=== PATIENT | female | born 1950 | race Caucasian/White ===

== ENCOUNTER 2017-08-03 11:43 | Inpatient (IN) ==
[2017-08-03] MEDS ORDERED: Lacri-Lube 3.5 GM TUBE BOTH EYES PRN (16:49)
[2017-08-03] MEDS ORDERED: Insulin Human Regular 100 UNIT in 0.9 % Sodium Chloride 100 ML IVC SCH (17:00)
[2017-08-03] MEDS ORDERED: FentaNYL (PF) 1,000 MCG in 0.9 % Sodium Chloride 80 ML IVC SCH (17:00)
[2017-08-03] MEDS ORDERED: *HR* Dextrose 50 % in Water (Syg) 50 ML SYRINGE IVP PRN ×2 (17:00→17:18)
--- NOTE | 2017-08-03 17:04 | Pulmonology History & Physical ---
<Laine Angeles - Last Filed: 08/03/17 17:54> Date of Encounter: 08/03/17 Time of Encounter: 17:00 Assessment and Plan (1) Seizure Current visit: Yes Status: Acute Patient has a history of seizures and is on keppra for maintenance. We ordered a keppra level and have consulted neurology. Neuro will complete an EEG in the morning and have asked us to increase her keppra dose to 1000mg BID from 500. (2) Altered mental status Current visit: Yes Status: Acute Most likely a post-ictal state. Patient unable to follow commands or respond appropriately due to sedation and intubation at this time. We will plan to extubate tomorrow if patient's respiratory status remains stable to complete a neurological exam. Neuro consulted and EEG planed for tomorrow AM. Qualifiers: Altered mental status type: unspecified Qualified Code(s): R41.82 - Altered mental status, unspecified (3) History of CVA with residual deficit Current visit: Yes Status: Acute Patient has history of CVA with right sided paralysis, dysphagia, and is non- verbal. Repeat CT showed no significant change from previous imaging. (4) Acute respiratory failure Current visit: Yes Status: Acute Patient was intubated at outside ED for protection of airway. Patient currently has WNL oxygen saturation and is sedated. We will plan to wean her from sedation and extubate her in the AM if patient can tolerate. Qualifiers: Respiratory failure complication: unspecified whether with hypoxia or hypercapnia Qualified Code(s): J96.00 - Acute respiratory failure, unspecified whether with hypoxia or hypercapnia (5) Diabetes mellitus Current visit: Yes Status: Chronic Patient's glucose 145 when arrived. Will add medium dose sliding scale for patient. 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 History of Present Illness Chief complaint: Seizure/ Ventilated Patient HPI: Ms. Savage is a 66 year old female transferred from an outside facility for seizure, altered mental status, acute respiratory failure. Earlier today the patient had a witnessed seizure at the correction. Patient has a history of seizures and is treated with Keppra at this time. Patient is also currently being treated for cellulitis around her G-tube. Patient went to an outside ED where her UA, CBC, CMP, CT scan of the head was within normal limits. When EMS arrived to transfer the patient to the floor, she was altered and did not respond to any commands. Patient has a history of cerebral infarction leading to right-sided hemiparalysis. But normally responds to verbal commands. This is an acute change in her mental status. Therefore the physician intubated her to protect her airway and transferred her to the [place] ICU. Patient has a history of atherosclerotic heart disease with coronary bypass, TIA, hypothyroidism, type 2 diabetes which is insulin-dependent. All of the history was obtained from previous records due to the patient being intubated. Past Med Surg Social Fam HX - Past Medical History Medical history: coronary artery disease, CVA (post op 04/2016, and 2010), hyperlipidemia, hypertension, thyroid disease (hypothyroid), other Psychiatric history: no psych history - Past Surgical History Surgical History: cataract (2009), coronary bypass (CABG) (05/07/16 CABG x 2 with endoscopic vein harvesting), orthopedic, other (carpal tunnel, cystocele 2013), ROSEMARIE/BSO (), other (05/19/16 sternal dehiscence) - Social History Smoking Status: Former smoker Smokeless Tobacco Status: No Alcohol use: none Drug use: none Medications and Allergies Irbesartan [Avapro] 75 mg GTUBE HS 04/30/16 [History] Oxybutynin [Ditropan] 5 mg GTUBE DAILY 04/30/16 [History] Aspirin 81 mg GTUBE HS tab.chew 06/27/16 [Rx] Sennosides [Senna] 8.8 mg GTUBE BID PRN #0 udc 06/27/16 [Rx] amLODIPine [Norvasc] 10 mg GTUBE HS tablet 06/27/16 [Rx] Acetaminophen [Pain Relief Adult] 1,000 mg GTUBE Q6H PRN 08/03/17 [History] Doxycycline 100 mg IV BID 08/03/17 [History] Ertapenem [INVanz] 1,000 mg IV Q24H 08/03/17 [History] Ferrous Sulfate Oral Soln 220 mg GTUBE DAILY 08/03/17 [History] GuaiFENesin/Dextromethorphan [Tussin Dm Syrup] 10 ml GTUBE Q6H PRN 08/03/17 [ History] Insulin Glargine,Hum.rec.anlog [Lantus Solostar] 13 unit SQ HS 08/03/17 [History ] Insulin LISPRO [HumaLOG] 2 - 12 units SQ QID 08/03/17 [History] Ipratropium/Albuterol Neb [Duoneb] 3 ml IH Q4H 08/03/17 [History] L. Acidophilus/Pectin, [place] [Acidophilus Probiotic Capsule] 1 each PO BID 10/09 [History] Lansoprazole [Prevacid] 30 mg GTUBE DAILY 08/03/17 [History] Levothyroxine [Synthroid] 112 mcg GTUBE QAM 08/03/17 [History] Menthol/Zinc Oxide [Caladrox Ointment] 1 appl TP BID 08/03/17 [History] Multivitamin with Minerals [Apatate Forte] 15 ml GTUBE DAILY 08/03/17 [History] Ondansetron HCl [Zofran] 4 mg PO Q6H PRN 08/03/17 [History] Potassium Chloride Elixir [Potassium Chloride] 20 meq GTUBE DAILY 08/03/17 [ History] Sertraline [Zoloft] 100 mg GTUBE DAILY 08/03/17 [History] Simethicone [Gaviscon Drops] 80 mg GTUBE TID 08/03/17 [History] Simvastatin [Zocor] 10 mg GTUBE HS 08/03/17 [History] levETIRAcetam [Keppra Oral Soln] 500 mg GTUBE BID 08/03/17 [History] 3 Allergy/AdvReac Type Severity Reaction Status Date / Time losartan [Losartan] AdvReac Cough Verified 04/30/16 08:38 ROS unobtainable: due to endotracheal tube All Systems: A 10-system review of systems was performed and is negative for pertinent findings except as documented above in the HPI. Physical Examination General appearance: comatose Eyes: nonicteric ENT: oropharynx moist Neck: supple, no JVD Effort: normal Inspection: normal Auscultation: bilateral: clear Cardiovascular: other (tachycardia) Gastrointestinal: normoactive bowel sounds, soft, non-distended Integumentary: normal Extremities: no cyanosis, pink and warm Musculoskeletal: no deformities unable to assess due to mental status <Aurora Mckeon - Last Filed: 08/03/17 21:49> Date of Encounter: 08/03/17 History of Present Illness HPI: Ms. Savage is a 66 year old female Past Med Surg Social Fam HX - Family History Father History Unknown: Yes Adopted: Yes Mother History Unknown: Yes Adopted: Yes All Systems: A 10-system review of systems was performed and is negative for pertinent findings except as documented above in the HPI. Results - Laboratory Findings Abnormal lab findings: Abnormal lab results POC Glucose 121 (58-89) H 08/03/17 16:59 - Attending Attestation I examined this patient and my medical decision-making was reviewed with the Resident Physician. I agree with the documented findings, disposition and treatment plan as described except to the extent set forth below. Patient seen and examined. Labs, radiology, chart personally reviewed. Agree with resident's history and physical, assessment, plan with following comments: HEAD GROWER: Patient does not follows commands, patient has history of stroke in the past and consulted Dr. Alba neurologist for management. Pulmonary: Acceptable oxygenation and ventilation. Patient is on the ventilator now and mainly it was for alter mental status. Will need an ABG to adjust the vent according to the result. ET tube position adjusted and I'm hoping her seizure will be under control and can be extubated then. Cardiovascular: stable for now GI: Nutrition per dietary and GI prophylaxis per routine. Patient has a PEG tube Heme: DVT prophylaxis per routine ID: It is not clear the source of any infection, however patient's is from correction and with lactic acid elevation which could be secondary from seizure and there is history of C. difficile for that reason after obtaining the samples empirically will treat her with Flagyl. Patient has SIRS and has more like sepsis like picture. She has been on antibiotics. Will need cultures. Renal; urine out put and renal funtion reviewed. IVF, I'm concerned about kidney injury. Endorcine: blood glucose is monitored Lines: all lines checked and no evidence of infections Skin: skin care to prevent pressure ulcers per nursing routine care Overall prognosis is poor and had discussed the case with referring physician twice. I spent 35 min of Critical Care time with this patient. It involved decision making of high complexity to assess, manipulate, and support vital organ system failure and/or to prevent further life threatening deterioration of the patient' s condition. The time involved in the performance of separately reportable procedures was not counted toward critical care time.
[2017-08-03] MEDS ORDERED: D5% in Water 1,000 ML IVC PRN (17:18)
[2017-08-03] MEDS ORDERED: Dextrose Gel 15 GM PO PRN ×2 (17:18)
[2017-08-03] MEDS: FentaNYL (PF) 1,000 MCG in 0.9 % Sodium Chloride 80 ML IVC SCH (17:34)
[2017-08-03] MEDS: Insulin LISPRO 300 UNITS/3 ML VIAL SQ SCH ×2 (17:35→23:35)
[2017-08-03 17:54] LABS: ABG Base Excess -0.4 mEq/L (-2.0 to 3.0); ABG HCO3 25 mEq/L (21-27); ABG Oxygen Saturation 99 % (95-98); ABG PCO2 42 mmHg (35-45); ABG PH 7.38 pH Units (7.32-7.45); ABG PO2 118 mmHg (85-104); ABG TCO2 26.1 mEq/L (20-26)
[2017-08-03 17:55] LABS: Blood Gas FiO2 50 %
--- NOTE | 2017-08-03 18:00 | Neurology - Consult Note ---
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 Will bump up to 1000mg bid. Obtain EEG in AM. Continue medical and supportive. Ativan 2mg prn for breakthrough seizures. History of Present Illness Chief complaint: Seizure HPI: Ms. Savage is a 66 year old female 66 year old woman with PMH significant forCAD, s/p CABG, carotid artery disease, AAA without rupture, hypothyroidism, HTN, CVA , right sided hemiparalysis, seizure disorder who presented due to breakthrough seizure and changes in mental status. Patient is a alf resident, there , she developed witnessed seizure. She was initially evaluated at outside hospital and then transferred here for further evaluation. While on the floor she was witnessed to have acute changes in her mental status and bacame unresponsive and she was then intubated for airway protection. She takes Keppra 500mg bid. SHe has history of large left MCA infarct and has residual right hemiparalysis. Per family members, patient had seizures since January/2017, described as GTC but no tongue biting or urinary incontinence. Family member describes shaking associated with loss of consciousness followed by hypersomnolence. She has been evaluated in the past and was started on Keppra 500mg bid and per daughter she has been doing well, until now. CT of head at OSH showed no acute changes. Past Med Surg Social Fam HX - Past Medical History Medical history: coronary artery disease, CVA (post op 04/2016, and 2010), hyperlipidemia, hypertension, thyroid disease (hypothyroid), other Psychiatric history: no psych history - Past Surgical History Surgical History: cataract (2009), coronary bypass (CABG) (05/07/16 CABG x 2 with endoscopic vein harvesting), orthopedic, other (carpal tunnel, cystocele 2013), ROSEMARIE/BSO (), other (05/19/16 sternal dehiscence) - Social History Smoking Status: Former smoker Smokeless Tobacco Status: No Alcohol use: none Drug use: none Medications and Allergies Chlorthalidone 25 mg GTUBE DAILY 03/30/16 [History] Levothyroxine [Synthroid] 100 mcg GTUBE 0630 03/30/16 [History] Irbesartan [Avapro] 75 mg GTUBE HS 04/30/16 [History] Oxybutynin [Ditropan] 5 mg GTUBE DAILY 04/30/16 [History] Vit C/Vit E/[place]in/Min/[place]-3 [Ocuvite Softgel] 1 each GTUBE DAILY 04/30/16 [ History] Psyllium [Metamucil Fiber Singles Packet] 1 packet GTUBE BID powd.pack [Rx] Sennosides [Senna] 8.8 mg GTUBE BID PRN #0 [facility] [place] 06/02/16 [Rx] Docusate [Colace] 100 mg GTUBE BID PRN 06/04/16 [History] Aspirin 81 mg GTUBE HS tab.chew 06/27/16 [Rx] Ferrous Sulfate Oral Soln 300 mg PO BIDWM udc 06/27/16 [Rx] Insulin DETEMIR [Levemir] 12 unit SQ Q12H [id number] 06/27/16 [Rx] Insulin LISPRO [HumaLOG] 0 units SQ HS vial 06/27/16 [Rx] Insulin LISPRO [HumaLOG] 0 units SQ TIDAC vial 06/27/16 [Rx] Ipratropium/Albuterol Neb [Duoneb] 3 ml IH BID inhsol 06/27/16 [Rx] Ipratropium/Albuterol Neb [Duoneb] 3 ml IH [id number] PRN #0 inhsol 06/27/16 [Rx] Lansoprazole [Prevacid] 30 mg GTUBE QAM capsule. 06/27/16 [Rx] Multivit/Ca/Min/Fe/FA [Thera M Plus] 1 tab GTUBE DAILY tablet 06/27/16 [Rx] Potassium Chloride Elixir [Potassium Chloride] 20 meq GTUBE BID udc 06/27/16 [ Rx] Sennosides [Senna] 8.8 mg GTUBE BID PRN #0 c 06/27/16 [Rx] Sertraline [Zoloft] 50 mg GTUBE DAILY tablet 06/27/16 [Rx] Simvastatin [Zocor] 20 mg GTUBE HS tablet 06/27/16 [Rx] amLODIPine [Norvasc] 10 mg GTUBE HS tablet 06/27/16 [Rx] 3 Allergy/AdvReac Type Severity Reaction Status Date / Time losartan [Losartan] AdvReac Cough Verified 04/30/16 08:38 All Systems: A 10-system review of systems was performed and is negative for pertinent findings except as documented above in the HPI. Physical Examination - Vital Signs Vital Signs: Initial Vital Signs Temp Pulse Resp BP Pulse Ox 98.3 F 101 12 96/59 100 08/03/17 17:00 08/03/17 17:00 08/03/17 17:00 08/03/17 17:00 08/03/17 17:00 - Constitutional General appearance: comfortable - Neurologic Sensorimotor examination: other (Unable to assess due ot sedation) Detailed motor examination: other (patient sedated and no spontaneous movement noted. ) Detailed sensory examination: other (Unable to assess) Posture: other (None) Reflexes: Biceps: 0, Triceps: 0, Brachioradialis: 0, Patella: 0, Achilles: 0 Mental Status Examination: coma (Medication induced coma) Cranial nerve examination: PERRL, EOMI (Unable to assess), visual brown intact (Unable to assess), corneal reflexes brisk symmetrically, sensory to face intact (Unable to assess), mastication intact (Unable to assess), no facial asymmetry is present, no dysarthria (Unable to assess), gag reflex intact ( Unable to assess), taste anterior 2/3 tongue diminished (Unable to asses) Results - Laboratory Findings Abnormal lab findings: Abnormal lab results POC Glucose 121 (58-89) H 08/03/17 16:59 Consult Discharge Plan - Plan Referrals: NONE,PCP [Primary Care Provider] -
[2017-08-03] MEDS: Pantoprazole 40 MG VIAL IVP SCH (18:10)
[2017-08-03] MEDS: *HR* Heparin 5,000 UNIT/ML VIAL SQ SCH (18:12)
[2017-08-03] MEDS: levETIRAcetam 500 MG/5 ML UDC PO SCH (20:34)
[2017-08-03] MEDS: Lacri-Lube 3.5 GM TUBE BOTH EYES SCH ×2 (20:34→23:52)
[2017-08-03] MEDS: Chlorhexidine Rinse 15 ML MOUTHWASH MM SCH (20:34)
[2017-08-03] MEDS ORDERED: metroNIDAZOLE 500 MG TABLET PO SCH (21:00)
[2017-08-03] MEDS ORDERED: levETIRAcetam 500 MG/5 ML UDC GTUBE SCH (21:00)
[2017-08-04] MEDS ORDERED: 0.9 % Sodium Chloride 1,000 ML IVC ONE (03:44)
[2017-08-04 04:09] LABS: ABG Base Excess 2.6 mEq/L (-2.0 to 3.0); ABG HCO3 27 mEq/L (21-27); ABG Oxygen Saturation 98 % (95-98); ABG PCO2 41 mmHg (35-45); ABG PH 7.43 pH Units (7.32-7.45); ABG PO2 105 mmHg (85-104); ABG TCO2 28.5 mEq/L (20-26)
[2017-08-04] MEDS: Lacri-Lube 3.5 GM TUBE BOTH EYES SCH ×5 (04:10→19:38)
[2017-08-04 05:10] LABS: Prothrombin Time 11.2 Seconds (9.4-12.1)
[2017-08-04] MEDS: *HR* Heparin 5,000 UNIT/ML VIAL SQ SCH ×2 (05:11→18:20)
[2017-08-04 05:13] LABS: Activated Partial Thrombo Time 21.3 Seconds (26.0-36.0)
[2017-08-04] MEDS: Insulin LISPRO 300 UNITS/3 ML VIAL SQ SCH ×3 (05:19→18:21)
[2017-08-04 05:21] LABS: Alanine Aminotransferase 46 Units/L (0-55); Albumin 2.4 g/dL (3.5-5.0); Albumin/Globulin Ratio 0.7 (1.1-2.2); Alkaline Phosphatase 95 Units/L (38-126); Aspartate Amino Transferase 60 Units/L (5-34); BUN/Creatinine Ratio 25 (6-26); Bilirubin,Direct 0.1 mg/dL (0.0-0.5); Bilirubin,Indirect 0.1 mg/dL (0.0-1.2); Bilirubin,Total 0.2 mg/dL (0.2-1.2); Blood Urea Nitrogen 23 mg/dL (7-20); Calcium 8.7 mg/dL (8.6-10.8); Carbon Dioxide 21 mEq/L (19-29); Chloride 108 mEq/L (98-109); Globulin 3.5 g/dL (2.4-3.5); Glucose 104 mg/dL (70-99); Osmolality,Calculated 296 (280-300); Potassium 3.8 mEq/L (3.5-4.5); Sodium 141 mEq/L (136-145); Total Protein 5.9 g/dL (6.0-8.3); eGFR For African Americans > 60 (> 60); eGFR For Non-African Americans 60 (> 60)
[2017-08-04 07:28] LABS: Basophils # 0.1 K/mcL (0.0-0.2); Basophils % 0.3 %; Eosinophils # 0.3 K/mcL (0.0-0.6); Eosinophils % 1.3 %; Hematocrit 30.9 % (35.3-44.9); Immature Granulocytes % 0.6 % (0-4); Immature Platelets 3.5 % (1.1-6.1); Lymphocytes # 1.2 K/mcL (0.6-4.6); Lymphocytes % 5.6 %; Mean Corpuscular HGB Conc 32.4 g/dL (31.6-35.5); Mean Corpuscular Hemoglobin 28.7 pg (28.0-33.3); Mean Corpuscular Volume 88.5 fL (83.0-100.0); Mean Platelet Volume 10.7 fL (9.4-12.4); Monocytes # 1.7 K/mcL (0.0-1.3); Neutrophils # 17.5 K/mcL (1.6-8.9); Platelet Count 358 K/mcL (140-400); Red Blood Count 3.49 M/mcL (3.82-4.97); Segmented Neutrophils % 84.2 %
[2017-08-04] MEDS ORDERED: Calcium Gluconate 1,000 MG in D5% in Water 100 ML IVPB PRN (07:41)
[2017-08-04] MEDS ORDERED: Potassium Phosphate 44 MEQ in 0.9 % Sodium Chloride 250 ML IVPB PRN (07:41)
[2017-08-04] MEDS ORDERED: Magnesium Sulfate 2 GM in D5% in Water 100 ML IVPB PRN (07:41)
[2017-08-04 08:22] LABS: Ionized Calcium 1.18 mmol/L (1.15-1.35)
[2017-08-04 08:29] LABS: Magnesium 1.3 mg/dL (1.6-2.6)
--- NOTE | 2017-08-04 09:16 | Pulmonology Progress Note ---
<Laine Angeles - Last Filed: 08/04/17 09:28> Date of Encounter: 08/04/17 Time of Encounter: 07:30 Assessment and Plan (1) Seizure Current Visit: Yes Status: Acute Patient has a history of seizures and is on keppra for maintenance. We ordered a keppra level and have consulted neurology. Neuro will complete an EEG this morning and have asked us to increase her keppra dose to 1000mg BID from 500. (2) Altered mental status Current Visit: Yes Status: Acute Most likely a post-ictal state. Patient unable to follow commands or respond appropriately due to sedation and intubation at this time. Neuro consulted and EEG planed for today Qualifiers: Altered mental status type: unspecified Qualified Code(s): R41.82 - Altered mental status, unspecified (3) History of CVA with residual deficit Current Visit: Yes Status: Acute Patient has history of CVA with right sided paralysis, dysphagia, and is non- verbal. Repeat CT showed no significant change from previous imaging. (4) Acute respiratory failure Current Visit: Yes Status: Acute Patient was intubated at outside ED for protection of airway. Patient currently has WNL oxygen saturation and is sedated. We will plan to wean her from sedation. Patient tried a CPAP trial this AM and failed. We will complete another trial later this afternoon. Goal is to extubate patient today. Qualifiers: Respiratory failure complication: unspecified whether with hypoxia or hypercapnia Qualified Code(s): J96.00 - Acute respiratory failure, unspecified whether with hypoxia or hypercapnia (5) Diabetes mellitus Current Visit: Yes Status: Chronic Continue medium dose sliding scale for patient. Qualifiers: Diabetes mellitus type: type 2 Diabetes mellitus complication status: with circulatory complication Diabetes mellitus complication detail: with other circulatory complications Diabetes mellitus nursing home insulin use: with nursing home use Qualified Code(s): E11.59 - Type 2 diabetes mellitus with other circulatory complications; Z79.4 - extermination inspector (current) use of insulin (6) DVT prophylaxis Current Visit: Yes Status: Inactive Patient started on subq heparin. Subjective Principal diagnosis: Seizure Interval history: No episodes overnight. Tried CPAP trial this AM and patient was going apenic. Will trial again this afternoon. Patient able to respond to some commands at this time. Sedation is now off. EEG to be completed today with neuro consulted. Objective PUL Vital signs: Last Vital Signs Temp 97.4 F L 08/04/17 07:59 Pulse 78 08/04/17 08:04 Resp 12 08/04/17 08:00 BP 121/76 08/04/17 08:00 Pulse Ox 99 08/04/17 08:00 General appearance: no acute distress Eyes: nonicteric ENT: oropharynx moist Neck: supple, no JVD Effort: normal Auscultation: bilateral: clear Cardiovascular: regular rate and rhythm Gastrointestinal: normoactive bowel sounds, soft, non-distended Integumentary: normal Extremities: no cyanosis Musculoskeletal: no deformities Gait: normal posture unable to assess due to mental status Ventilator Settings Ventilator Settings: Ventilator Settings, Last 8 Hours Ventilator Mode VC+ Ventilator Mode VC+ Ventilator Mode VC+ Ventilator Mode VC+ Ventilator Mode VC+ Ventilator Mode VC+ Ventilator Mode A/C Ventilator Mode A/C Ventilator Mode A/C Ventilator Mode A/C Ventilator Tidal Volume 450 Setting Ventilator Tidal Volume 450 Setting Ventilator Tidal Volume 450 Setting Ventilator Tidal Volume 450 Setting Ventilator Tidal Volume 450 Setting Ventilator Tidal Volume 450 Setting Ventilator Tidal Volume 450 Setting Ventilator Tidal Volume 450 Setting Ventilator Tidal Volume 450 Setting Ventilator Tidal Volume 450 Setting Ventilator Respiratory Rate 12 Setting Ventilator Respiratory Rate 12 Setting Ventilator Respiratory Rate 12 Setting Ventilator Respiratory Rate 12 Setting Ventilator Respiratory Rate 12 Setting Ventilator Respiratory Rate 12 Setting Ventilator Respiratory Rate 12 Setting Ventilator Respiratory Rate 12 Setting Ventilator Respiratory Rate 12 Setting Ventilator Respiratory Rate 12 Setting Actual Respiratory Rate 12 Actual Respiratory Rate 12 Actual Respiratory Rate 12 Actual Respiratory Rate 12 Actual Respiratory Rate 12 Actual Respiratory Rate 12 Actual Respiratory Rate 12 Actual Respiratory Rate 12 Actual Respiratory Rate 12 Positive End Expiratory 5 Pressure Positive End Expiratory 5 Pressure Positive End Expiratory 5 Pressure Positive End Expiratory 5 Pressure Positive End Expiratory 5 Pressure Positive End Expiratory 5 Pressure Positive End Expiratory 5 Pressure Positive End Expiratory 5 Pressure Positive End Expiratory 5 Pressure Positive End Expiratory 5 Pressure Peak Inspiratory Airway 35 Pressure Peak Inspiratory Airway 35 Pressure Peak Inspiratory Airway 27 Pressure Peak Inspiratory Airway 33 Pressure Peak Inspiratory Airway 28 Pressure Peak Inspiratory Airway 30 Pressure Peak Inspiratory Airway 34 Pressure Peak Inspiratory Airway 29 Pressure Peak Inspiratory Airway 28 Pressure Results - Laboratory Findings CBC and BMP: 08/04/17 07:18 08/04/17 04:51 ABG ABG pH 7.43 pH Units (7.32-7.45) 08/04/17 03:57 ABG pCO2 41 mmHg (35-45) 08/04/17 03:57 ABG pO2 105 mmHg (85-104) H 08/04/17 03:57 ABG O2 Saturation 98 % (95-98) 08/04/17 03:57 PT/INR, D-dimer PT 11.2 Seconds (9.4-12.1) 08/04/17 04:51 Abnormal lab findings: Abnormal lab results WBC 20.8 K/mcL (4.3-11.1) H 08/04/17 07:18 RBC 3.49 M/mcL (3.82-4.97) L 08/04/17 07:18 Hgb 10.0 g/dL (11.5-15.4) L 08/04/17 07:18 Hct 30.9 % (35.3-44.9) L 08/04/17 07:18 RDW 16.0 % (11.5-14.5) H 08/04/17 07:18 Neutrophils # 17.5 K/mcL (1.6-8.9) H 08/04/17 07:18 Monocytes # 1.7 K/mcL (0.0-1.3) H 08/04/17 07:18 APTT 21.3 Seconds (26.0-36.0) L 08/04/17 04:51 ABG pO2 105 mmHg (85-104) H 08/04/17 03:57 ABG Total CO2 28.5 mEq/L (20-26) H 08/04/17 03:57 BUN 23 mg/dL (7-20) H 08/04/17 04:51 Glucose 104 mg/dL (70-99) H 08/04/17 04:51 POC Glucose 90 (58-89) H 08/04/17 05:13 Magnesium 1.3 mg/dL (1.6-2.6) L 08/04/17 08:02 AST 60 Units/L (5-34) H 08/04/17 04:51 Troponin I 0.38 ng/mL (0-0.03) H* 08/04/17 04:51 Serum Total Protein 5.9 g/dL (6.0-8.3) L 08/04/17 04:51 Albumin 2.4 g/dL (3.5-5.0) L 08/04/17 04:51 Albumin/Globulin Ratio 0.7 (1.1-2.2) L 08/04/17 04:51 - Diagnostic Findings Chest x-ray: report reviewed, image reviewed - Clinical Findings Intake & Output: Intake & Output 08/03/17 08/04/17 08/04/17 23:59 07:59 15:59 Intake Total 0 / 0 1094 / 1094 Output Total 550 / 550 80 / 80 Balance -550 / -550 1014 / 1014 Weight 68 kg Consult Discharge Plan - Plan Referrals: NONE,PCP [Primary Care Provider] - <Aurora Mckeon - Last Filed: 08/04/17 16:21> Date of Encounter: 08/04/17 Objective PUL Vital signs: Last Vital Signs Temp 98.0 F 08/04/17 15:00 Pulse 87 08/04/17 15:47 Resp 12 08/04/17 15:59 BP 119/76 08/04/17 15:00 Pulse Ox 100 08/04/17 15:59 Ventilator Settings Ventilator Settings: Ventilator Settings, Last 8 Hours Ventilator Mode VC+ Ventilator Mode VC+ Ventilator Mode VC+ Ventilator Mode VC+ Ventilator Mode VC+ Ventilator Tidal Volume 450 Setting Ventilator Tidal Volume 450 Setting Ventilator Tidal Volume 450 Setting Ventilator Tidal Volume 450 Setting Ventilator Tidal Volume 450 Setting Ventilator Respiratory Rate 12 Setting Ventilator Respiratory Rate 12 Setting Ventilator Respiratory Rate 12 Setting Ventilator Respiratory Rate 12 Setting Ventilator Respiratory Rate 12 Setting Actual Respiratory Rate 12 Actual Respiratory Rate 12 Actual Respiratory Rate 12 Actual Respiratory Rate 12 Actual Respiratory Rate 12 Positive End Expiratory 5 Pressure Positive End Expiratory 5 Pressure Positive End Expiratory 5 Pressure Positive End Expiratory 5 Pressure Positive End Expiratory 5 Pressure Peak Inspiratory Airway 34 Pressure Peak Inspiratory Airway 34 Pressure Peak Inspiratory Airway 39 Pressure Peak Inspiratory Airway 38 Pressure Peak Inspiratory Airway 33 Pressure Results - Laboratory Findings CBC and BMP: 08/04/17 07:18 08/04/17 04:51 ABG ABG pH 7.43 pH Units (7.32-7.45) 08/04/17 03:57 ABG pCO2 41 mmHg (35-45) 08/04/17 03:57 ABG pO2 105 mmHg (85-104) H 08/04/17 03:57 ABG O2 Saturation 98 % (95-98) 08/04/17 03:57 PT/INR, D-dimer PT 11.2 Seconds (9.4-12.1) 08/04/17 04:51 Abnormal lab findings: Abnormal lab results WBC 20.8 K/mcL (4.3-11.1) H 08/04/17 07:18 RBC 3.49 M/mcL (3.82-4.97) L 08/04/17 07:18 Hgb 10.0 g/dL (11.5-15.4) L 08/04/17 07:18 Hct 30.9 % (35.3-44.9) L 08/04/17 07:18 RDW 16.0 % (11.5-14.5) H 08/04/17 07:18 Neutrophils # 17.5 K/mcL (1.6-8.9) H 08/04/17 07:18 Monocytes # 1.7 K/mcL (0.0-1.3) H 08/04/17 07:18 APTT 21.3 Seconds (26.0-36.0) L 08/04/17 04:51 ABG pO2 105 mmHg (85-104) H 08/04/17 03:57 ABG Total CO2 28.5 mEq/L (20-26) H 08/04/17 03:57 BUN 23 mg/dL (7-20) H 08/04/17 04:51 Glucose 104 mg/dL (70-99) H 08/04/17 04:51 POC Glucose 129 (58-89) H 08/04/17 11:41 Magnesium 1.3 mg/dL (1.6-2.6) L 08/04/17 08:02 AST 60 Units/L (5-34) H 08/04/17 04:51 Troponin I 0.26 ng/mL (0-0.03) H* 08/04/17 13:33 Serum Total Protein 5.9 g/dL (6.0-8.3) L 08/04/17 04:51 Albumin 2.4 g/dL (3.5-5.0) L 08/04/17 04:51 Albumin/Globulin Ratio 0.7 (1.1-2.2) L 08/04/17 04:51 - Clinical Findings Intake & Output: Intake & Output 08/04/17 08/04/17 08/04/17 07:59 15:59 23:59 Intake Total 1094 / 1094 40 / 40 Output Total 80 / 80 225 / 225 Balance 1014 / 1014 -185 / -185 - Attending Attestation I examined this patient and my medical decision-making was reviewed with the Resident Physician. I agree with the documented findings, disposition and treatment plan as described except to the extent set forth below. Patient seen and examined. Labs, radiology, chart personally reviewed. 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 Patient failed spontaneous breathing trial. We will wean off sedation as much as possible and attempt tomorrow. Cardiovascular: stable GI: Nutrition per dietary and GI prophylaxis per routine Heme: DVT prophylaxis per routine ID: antibiotic de-escalation Renal; urine out put and renal funtion reviewed. Challenge with fluid Endorcine: blood glucose is monitored Lines: all lines checked and no evidence of infections Skin: skin care to prevent pressure ulcers per nursing routine care Overall prognosis is very poor. Family is updated
[2017-08-04] MEDS: Aspirin 81 MG TAB.CHEW PO SCH (09:23)
[2017-08-04] MEDS: Chlorhexidine Rinse 15 ML MOUTHWASH MM SCH ×2 (09:23→19:58)
[2017-08-04] MEDS: levETIRAcetam 500 MG/5 ML UDC PO SCH ×2 (09:23→19:58)
[2017-08-04] MEDS: Pantoprazole 40 MG VIAL IVP SCH (09:23)
[2017-08-04] MEDS ORDERED: *HR* LORazepam 2 MG/ML VIAL IVP PRN (10:23)
[2017-08-04] MEDS: 0.9 % Sodium Chloride 1,000 ML IVC SCH (13:47)
--- NOTE | 2017-08-04 13:59 | EEG/EMG/Oth Biometrics Report ---
EEG Procedure Report Date of procedure: 08/04/17 EEG Procedure: Routine EEG Procedure Note: Medication: no anticonvulsants listed. Report: This EEG was acquired with standard international 10-20 electrode placement system with EKG recording. The background activity during this EEG was characterized by the presence of posterior dominant alpha rhythm with best frequency up to 10 Hz, more solid to the right side. The background activity was reactive to eye openings. Sleep stages were characterized by the presence of background fragmentation, Vertex waves, K-complexes and sleep spindles. There are no electrographic seizures identified during this tracing. There are no epileptiform discharges noted. However, there was persistently slowing at the left hemisphere with predominantly delta activity throughout recording. Photic stimulation produced no abnormalities. HV not performed during this study. EKG tracing showed no significant cardiac dysarrhythmia. Impression: This is an abnormal EEG due to presence of persistent hemispheric slowing on the left side. No active seizure is noted. No epileptiform discharges noted. Clinical Correlation: This EEG is consistent with focal neuronal dysfunction at the left hemisphere. This pattern can be seen in patients with focal cerebral structure abnormalities , or less likely, as a post-ictal phenomenon of partial seizure disorder. Clinical correlation advised. Correlation with imaging studies may be helpful.
[2017-08-04] MEDS: FentaNYL (PF) 1,000 MCG in 0.9 % Sodium Chloride 80 ML IVC SCH (19:37)
[2017-08-05] MEDS: 0.9 % Sodium Chloride 1,000 ML IVC SCH ×3 (00:08→20:26)
[2017-08-05] MEDS: Lacri-Lube 3.5 GM TUBE BOTH EYES SCH ×6 (00:43→20:20)
[2017-08-05] MEDS: Insulin LISPRO 300 UNITS/3 ML VIAL SQ SCH ×4 (01:02→17:24)
[2017-08-05 05:50] LABS: ABG Base Excess -1.3 mEq/L (-2.0 to 3.0); ABG HCO3 23 mEq/L (21-27); ABG Oxygen Saturation 98 % (95-98); ABG PCO2 34 mmHg (35-45); ABG PH 7.43 pH Units (7.32-7.45); ABG PO2 97 mmHg (85-104); ABG TCO2 23.6 mEq/L (20-26)
[2017-08-05 05:51] LABS: Blood Gas FiO2 30 %
[2017-08-05] MEDS: *HR* Heparin 5,000 UNIT/ML VIAL SQ SCH ×2 (05:56→17:26)
[2017-08-05] MEDS: levETIRAcetam 500 MG/5 ML UDC PO SCH ×2 (07:37→20:26)
[2017-08-05] MEDS: Pantoprazole 40 MG VIAL IVP SCH (07:37)
[2017-08-05] MEDS: Chlorhexidine Rinse 15 ML MOUTHWASH MM SCH ×2 (07:37→20:26)
[2017-08-05] MEDS: Aspirin 81 MG TAB.CHEW PO SCH (07:37)
--- NOTE | 2017-08-05 09:04 | Pulmonology Progress Note ---
<Javed Gillis - Last Filed: 08/05/17 09:01> Date of Encounter: 08/05/17 Time of Encounter: 09:00 Assessment and Plan (1) Seizure Current Visit: Yes Status: Acute Patient has a history of seizures and is on Keppra for maintenance. EEG is consistent with focal neuronal dysfunction of the left hemisphere. Patient failed CPAP trial this a.m. We will try again later today. (2) Altered mental status Current Visit: Yes Status: Acute Patient is able to follow verbal commands. She is off sedation. CPAP trial later today and reassess mental status. EEG is consistent with left hemisphere dysfunction but could also be correlated with post ictal state. Neurology is following. Qualifiers: Altered mental status type: unspecified Qualified Code(s): R41.82 - Altered mental status, unspecified (3) Acute respiratory failure Current Visit: Yes Status: Acute Patient continues to be intubated at this time. She is weaned off from sedation. She is able to follow verbal commands. But she failed CPAP trial this a.m. We will try again later this afternoon Qualifiers: Respiratory failure complication: unspecified whether with hypoxia or hypercapnia Qualified Code(s): J96.00 - Acute respiratory failure, unspecified whether with hypoxia or hypercapnia (4) History of CVA with residual deficit Current Visit: Yes Status: Acute Patient has history of CVA with right sided paralysis, dysphagia, and is non- verbal. Repeat CT showed no significant change from previous imaging. Physical exam is consistent. She is able to follow verbal commands on the left side. No physical signs of new stroke. (5) Diabetes mellitus Current Visit: Yes Status: Chronic Continue medium dose sliding scale at this time. 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 Patient is following commands. We will trial again this afternoon. Sedation is off. EEG is consistent with left hemisphere dysfunction but could also be correlated with post ictal phenomenon. No other overnight events. She continues to be pending to transfer to floor Objective PUL Vital signs: Last Vital Signs Temp 98.1 F 08/05/17 08:00 Pulse 92 08/05/17 08:00 Resp 19 08/05/17 08:00 BP 144/82 08/05/17 08:00 Pulse Ox 100 08/05/17 08:00 General appearance: no acute distress Eyes: nonicteric ENT: other (Intubated) Neck: supple Auscultation: bilateral: clear Cardiovascular: regular rate and rhythm Gastrointestinal: normoactive bowel sounds, soft, non-tender, non-distended Extremities: no cyanosis, no edema, no clubbing Musculoskeletal: no deformities other (Able to follow commands on the left upper and lower extremities. Strength is +3 out of 5 on the left. Patient is unable to follow commands on the right. Corneal reflexes brisk symmetrically. Unable to determine sensory examination due to patient being intubated. EOMI. Unable to examine mastication, dysarthria, gag reflex.) Ventilator Settings Ventilator Settings: Ventilator Settings, Last 8 Hours Ventilator Mode VC+ Ventilator Mode VC+ Ventilator Mode VC+ Ventilator Mode A/C Ventilator Mode A/C Ventilator Mode A/C Ventilator Mode A/C Ventilator Mode A/C Ventilator Mode A/C Ventilator Mode A/C Ventilator Mode A/C Ventilator Tidal Volume 450 Setting Ventilator Tidal Volume 450 Setting Ventilator Tidal Volume 450 Setting Ventilator Tidal Volume 450 Setting Ventilator Tidal Volume 450 Setting Ventilator Tidal Volume 450 Setting Ventilator Tidal Volume 450 Setting Ventilator Tidal Volume 450 Setting Ventilator Tidal Volume 450 Setting Ventilator Tidal Volume 450 Setting Ventilator Tidal Volume 450 Setting Ventilator Respiratory Rate 12 Setting Ventilator Respiratory Rate 12 Setting Ventilator Respiratory Rate 12 Setting Ventilator Respiratory Rate 12 Setting Ventilator Respiratory Rate 12 Setting Ventilator Respiratory Rate 12 Setting Ventilator Respiratory Rate 12 Setting Ventilator Respiratory Rate 12 Setting Ventilator Respiratory Rate 12 Setting Ventilator Respiratory Rate 12 Setting Ventilator Respiratory Rate 12 Setting Actual Respiratory Rate 17 Actual Respiratory Rate 17 Actual Respiratory Rate 17 Actual Respiratory Rate 13 Actual Respiratory Rate 15 Positive End Expiratory 5 Pressure Positive End Expiratory 5 Pressure Positive End Expiratory 5 Pressure Positive End Expiratory 5 Pressure Positive End Expiratory 5 Pressure Positive End Expiratory 5 Pressure Positive End Expiratory 5 Pressure Positive End Expiratory 5 Pressure Positive End Expiratory 5 Pressure Positive End Expiratory 5 Pressure Positive End Expiratory 5 Pressure Peak Inspiratory Airway 29 Pressure Peak Inspiratory Airway 29 Pressure Peak Inspiratory Airway 29 Pressure Peak Inspiratory Airway 34 Pressure Peak Inspiratory Airway 34 Pressure Results - Laboratory Findings CBC and BMP: 08/04/17 07:18 08/04/17 04:51 ABG ABG pH 7.43 pH Units (7.32-7.45) 08/05/17 05:43 ABG pCO2 34 mmHg (35-45) L 08/05/17 05:43 ABG pO2 97 mmHg (85-104) 08/05/17 05:43 ABG O2 Saturation 98 % (95-98) 08/05/17 05:43 PT/INR, D-dimer PT 11.2 Seconds (9.4-12.1) 08/04/17 04:51 Abnormal lab findings: Abnormal lab results WBC 20.8 K/mcL (4.3-11.1) H 08/04/17 07:18 RBC 3.49 M/mcL (3.82-4.97) L 08/04/17 07:18 Hgb 10.0 g/dL (11.5-15.4) L 08/04/17 07:18 Hct 30.9 % (35.3-44.9) L 08/04/17 07:18 RDW 16.0 % (11.5-14.5) H 08/04/17 07:18 Neutrophils # 17.5 K/mcL (1.6-8.9) H 08/04/17 07:18 Monocytes # 1.7 K/mcL (0.0-1.3) H 08/04/17 07:18 APTT 21.3 Seconds (26.0-36.0) L 08/04/17 04:51 ABG pCO2 34 mmHg (35-45) L 08/05/17 05:43 BUN 23 mg/dL (7-20) H 08/04/17 04:51 Glucose 104 mg/dL (70-99) H 08/04/17 04:51 POC Glucose 113 (58-89) H 08/05/17 05:57 Magnesium 1.3 mg/dL (1.6-2.6) L 08/04/17 08:02 AST 60 Units/L (5-34) H 08/04/17 04:51 Troponin I 0.26 ng/mL (0-0.03) H* 08/04/17 13:33 Serum Total Protein 5.9 g/dL (6.0-8.3) L 08/04/17 04:51 Albumin 2.4 g/dL (3.5-5.0) L 08/04/17 04:51 Albumin/Globulin Ratio 0.7 (1.1-2.2) L 08/04/17 04:51 - Clinical Findings Intake & Output: Intake & Output 08/04/17 08/05/17 08/05/17 23:59 07:59 15:59 Intake Total 1000 / 1000 Output Total 150 / 150 650 / 650 Balance -150 / -150 350 / 350 Weight 70.5 kg Consult Discharge Plan - Plan Referrals: NONE,PCP [Primary Care Provider] - <Aurora Mckeon M - Last Filed: 08/05/17 16:19> Date of Encounter: 08/05/17 Objective PUL Vital signs: Last Vital Signs Temp 98.2 F 08/05/17 11:28 Pulse 84 08/05/17 15:00 Resp 17 08/05/17 15:45 BP 135/75 08/05/17 15:00 Pulse Ox 100 08/05/17 15:45 Ventilator Settings Ventilator Settings: Ventilator Settings, Last 8 Hours Ventilator Mode VC+ Ventilator Mode VC+ Ventilator Mode VC+ Ventilator Mode VC+ Ventilator Mode VC+ Ventilator Mode VC+ Ventilator Mode CPAP Ventilator Mode VC+ Ventilator Mode VC+ Ventilator Mode VC+ Ventilator Mode VC+ Ventilator Tidal Volume 450 Setting Ventilator Tidal Volume 450 Setting Ventilator Tidal Volume 450 Setting Ventilator Tidal Volume 500 Setting Ventilator Tidal Volume 450 Setting Ventilator Tidal Volume 450 Setting Ventilator Tidal Volume 450 Setting Ventilator Tidal Volume 450 Setting Ventilator Tidal Volume 450 Setting Ventilator Tidal Volume 450 Setting Ventilator Tidal Volume 450 Setting Ventilator Respiratory Rate 12 Setting Ventilator Respiratory Rate 12 Setting Ventilator Respiratory Rate 12 Setting Ventilator Respiratory Rate 12 Setting Ventilator Respiratory Rate 12 Setting Ventilator Respiratory Rate 12 Setting Ventilator Respiratory Rate 12 Setting Ventilator Respiratory Rate 12 Setting Ventilator Respiratory Rate 12 Setting Ventilator Respiratory Rate 12 Setting Actual Respiratory Rate 17 Actual Respiratory Rate 17 Actual Respiratory Rate 14 Actual Respiratory Rate 16 Actual Respiratory Rate 15 Actual Respiratory Rate 22 Actual Respiratory Rate 29 Actual Respiratory Rate 15 Actual Respiratory Rate 17 Actual Respiratory Rate 12 Actual Respiratory Rate 17 Positive End Expiratory 5 Pressure Positive End Expiratory 5 Pressure Positive End Expiratory 5 Pressure Positive End Expiratory 5 Pressure Positive End Expiratory 5 Pressure Positive End Expiratory 5 Pressure Positive End Expiratory 5 Pressure Positive End Expiratory 5 Pressure Positive End Expiratory 12 Pressure Positive End Expiratory 5 Pressure Positive End Expiratory 5 Pressure Peak Inspiratory Airway 31 Pressure Peak Inspiratory Airway 24 Pressure Peak Inspiratory Airway 26 Pressure Peak Inspiratory Airway 26 Pressure Peak Inspiratory Airway 29 Pressure Peak Inspiratory Airway 33 Pressure Peak Inspiratory Airway 15 Pressure Peak Inspiratory Airway 27 Pressure Peak Inspiratory Airway 29 Pressure Peak Inspiratory Airway 34 Pressure Peak Inspiratory Airway 29 Pressure Results - Laboratory Findings CBC and BMP: 08/04/17 07:18 08/04/17 04:51 ABG ABG pH 7.43 pH Units (7.32-7.45) 08/05/17 05:43 ABG pCO2 34 mmHg (35-45) L 08/05/17 05:43 ABG pO2 97 mmHg (85-104) 08/05/17 05:43 ABG O2 Saturation 98 % (95-98) 08/05/17 05:43 PT/INR, D-dimer PT 11.2 Seconds (9.4-12.1) 08/04/17 04:51 Abnormal lab findings: Abnormal lab results WBC 20.8 K/mcL (4.3-11.1) H 08/04/17 07:18 RBC 3.49 M/mcL (3.82-4.97) L 08/04/17 07:18 Hgb 10.0 g/dL (11.5-15.4) L 08/04/17 07:18 Hct 30.9 % (35.3-44.9) L 08/04/17 07:18 RDW 16.0 % (11.5-14.5) H 08/04/17 07:18 Neutrophils # 17.5 K/mcL (1.6-8.9) H 08/04/17 07:18 Monocytes # 1.7 K/mcL (0.0-1.3) H 08/04/17 07:18 APTT 21.3 Seconds (26.0-36.0) L 08/04/17 04:51 ABG pCO2 34 mmHg (35-45) L 08/05/17 05:43 BUN 23 mg/dL (7-20) H 08/04/17 04:51 Glucose 104 mg/dL (70-99) H 08/04/17 04:51 POC Glucose 115 (58-89) H 08/05/17 11:32 Magnesium 1.3 mg/dL (1.6-2.6) L 08/04/17 08:02 AST 60 Units/L (5-34) H 08/04/17 04:51 Troponin I 0.26 ng/mL (0-0.03) H* 08/04/17 13:33 Serum Total Protein 5.9 g/dL (6.0-8.3) L 08/04/17 04:51 Albumin 2.4 g/dL (3.5-5.0) L 08/04/17 04:51 Albumin/Globulin Ratio 0.7 (1.1-2.2) L 08/04/17 04:51 - Microbiology Findings Microbiology Findings: Microbiology, Last 48 Hours 08/04/17 00:51 Blood Culture - Preliminary Peripheral Venipuncture No growth. 08/04/17 00:51 Blood Culture - Preliminary Peripheral Venipuncture No growth. - Clinical Findings Intake & Output: Intake & Output 08/05/17 08/05/17 08/05/17 07:59 15:59 23:59 Intake Total 1000 / 1000 1000 / 1000 Output Total 650 / 650 300 / 300 Balance 350 / 350 700 / 700 Weight 70.5 kg - Attending Attestation I examined this patient and my medical decision-making was reviewed with the Resident Physician. I agree with the documented findings, disposition and treatment plan as described except to the extent set forth below. Patient seen and examined. Labs, radiology, chart personally reviewed. 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 Cardiovascular: stable GI: Nutrition per dietary and GI prophylaxis per routine Heme: DVT prophylaxis per routine Renal; urine out put and renal funtion reviewed Endorcine: blood glucose is monitored Lines: all lines checked and no evidence of infections Skin: skin care to prevent pressure ulcers per nursing routine care Overall prognosis is poor and we will wait for the family and palliative care service recommendations.
--- NOTE | 2017-08-05 10:52 | Palliative - Consult Note ---
<Farhan Paula - Last Filed: 08/05/17 10:47> Date of Encounter: 08/05/17 Time of Encounter: 10:47 - Assessment and Plan (1) Goals of care, counseling/discussion Current Visit: Yes Status: Acute Assessment and plan: PAtient has a hx of seizures on keppra for maintenance. EEG is consistent with focal neuronal dysfunction symptoms of right sided paralysis, and dysphagia. CT on this admission shows no acute changes from previous admission. Patient was witnessed to have seizure at her [facility], she was orginially brought to [facility] and then transferred to [place]. Due to Altered mental status, patient was then intubated to protect airway and admitted to ICU. Patient also has hx of atherosclerotic heart disease w/ CABG, TIA, hypothyroidism, and insulin dependent T2DM. Patient has multiple failed attempts of failed CPAP, Palliative consulted to help determine if patient will have trach if unable to wean patient of respiratory support Sister is written as Guardian, but unable to locate documentation. Will continue to contact family, family is unreachable at this time Code Status DNR CCA. Documentation available in ICU. (2) Acute respiratory failure Current Visit: Yes Status: Acute Assessment and plan: Failed attempts of CPAP trials. ICU will attempt again today. per management of ICU. Will discuss trach with guardian Qualifiers: Respiratory failure complication: unspecified whether with hypoxia or hypercapnia Qualified Code(s): J96.00 - Acute respiratory failure, unspecified whether with hypoxia or hypercapnia (3) History of CVA with residual deficit Current Visit: Yes Status: Acute Assessment and plan: Hx of CVA w/ right sided paralysis, dysphagia, and is responsive to commands but non-verbal. (4) Seizure Current Visit: Yes Status: Acute Assessment and plan: Seizure in [facility], currently on Keppra on maintenance. per management of ICU team Palliative-CN HPI - Data of Consult Patient: new to practice Consult date: 08/05/17 Requesting Physician: Aurora Mckeon MD Primary Care Provider: PCP NONE - Consult Narrative Palliative Care/Comfort Measures: Hospice care Reason for consult: difficult with intubation, possibly needs a trach History of present illness: Ms. Savage is a 66 year old female who is in acute respiratory failure with a recent history of seizure on keppra, AMS, CVA. PAtient is currently off sedation and conscious but intubated and was able to answer questions by shaking her head. Patient currently denies any pain or discomfort. Patient has had multiple attempts of failed CPAP trial. CC: Aurora Mckeon MD Past Med Surg Social Fam HX - Past Medical History Medical history: coronary artery disease, CVA, diabetes, hyperlipidemia, hypertension, migraine, thyroid disease, other Psychiatric history: anxiety, depression - Past Surgical History Surgical History: cataract, coronary bypass (CABG), orthopedic, other, ROSEMARIE/BSO, other - Social History Smoking Status: Former smoker Smokeless Tobacco Status: No Alcohol use: none Drug use: none - Family History Father History Unknown: Yes Adopted: Yes Mother History Unknown: Yes Adopted: Yes Medications and Allergies Irbesartan [Avapro] 75 mg GTUBE HS 04/30/16 [History] Oxybutynin [Ditropan] 5 mg GTUBE DAILY 04/30/16 [History] Aspirin 81 mg GTUBE HS tab.chew 06/27/16 [Rx] Sennosides [Senna] 8.8 mg GTUBE BID PRN #0 udc 06/27/16 [Rx] amLODIPine [Norvasc] 10 mg GTUBE HS tablet 06/27/16 [Rx] Acetaminophen [Pain Relief Adult] 1,000 mg GTUBE Q6H PRN 08/03/17 [History] Doxycycline 100 mg IV BID 08/03/17 [History] Ertapenem [INVanz] 1,000 mg IV Q24H 08/03/17 [History] Ferrous Sulfate Oral Soln 220 mg GTUBE DAILY 08/03/17 [History] GuaiFENesin/Dextromethorphan [Tussin Dm Syrup] 10 ml GTUBE Q6H PRN 08/03/17 [ History] Insulin Glargine,Hum.rec.anlog [Lantus Solostar] 13 unit SQ HS 08/03/17 [History ] Insulin LISPRO [HumaLOG] 2 - 12 units SQ QID 08/03/17 [History] Ipratropium/Albuterol Neb [Duoneb] 3 ml IH Q4H 08/03/17 [History] L. Acidophilus/Pectin, [place] [Acidophilus Probiotic Capsule] 1 each PO BID 10/09 [History] Lansoprazole [Prevacid] 30 mg GTUBE DAILY 08/03/17 [History] Levothyroxine [Synthroid] 112 mcg GTUBE QAM 08/03/17 [History] Menthol/Zinc Oxide [Caladrox Ointment] 1 appl TP BID 08/03/17 [History] Multivitamin with Minerals [Apatate Forte] 15 ml GTUBE DAILY 08/03/17 [History] Ondansetron HCl [Zofran] 4 mg PO Q6H PRN 08/03/17 [History] Potassium Chloride Elixir [Potassium Chloride] 20 meq GTUBE DAILY 08/03/17 [ History] Sertraline [Zoloft] 100 mg GTUBE DAILY 08/03/17 [History] Simethicone [Gaviscon Drops] 80 mg GTUBE TID 08/03/17 [History] Simvastatin [Zocor] 10 mg GTUBE HS 08/03/17 [History] levETIRAcetam [Keppra Oral Soln] 500 mg GTUBE BID 08/03/17 [History] 3 Allergy/AdvReac Type Severity Reaction Status Date / Time losartan [Losartan] AdvReac Cough Verified 04/30/16 08:38 Palliative Care-Exam - Constitutional Vitals: Temp Pulse Resp BP Pulse Ox 98.1 F 80 12 127/70 100 08/05/17 08:00 08/05/17 10:00 08/05/17 10:00 08/05/17 10:00 08/05/17 10:00 General appearance: Present: cooperative, no acute distress - Respiratory Respiratory exam: Absent: wheezes Additional comments: transmitted breath sounds from ventilator - Cardiovascular Additional comments: difficulty hearing cardiac due to respirator - Extremities Exam Extremities exam: Absent: pedal edema - Neurological Exam Neurological exam: Present: alert Internal Medicine - CN: Reslt - Labs CBC & Chem 7: 08/04/17 07:18 08/04/17 04:51 Labs: Cardiac Enzymes 08/04/17 Range/Units 13:33 Troponin I 0.26 H* (0-0.03) ng/mL - ABG Interpretation ABG results: ABG ABG pH 7.43 pH Units (7.32-7.45) 08/05/17 05:43 ABG pCO2 34 mmHg (35-45) L 08/05/17 05:43 ABG pO2 97 mmHg (85-104) 08/05/17 05:43 ABG O2 Saturation 98 % (95-98) 08/05/17 05:43 PT/INR, D-dimer PT 11.2 Seconds (9.4-12.1) 08/04/17 04:51 Consult Discharge Plan - Plan Referrals: NONE,PCP [Primary Care Provider] - Palliative Quality Palliative Quality: Screen for Code Status: Yes, Screen for Goals of Care: Yes, Screen for Pain: Yes, If Pain Regimen Started, Initiate Bowel Regimen: NA, Screen for Nausea/Vomitting: NA Code Status: 08/04/17 08:28 CODE [Resuscitation Status: Active] [RES] Routine Comment: Resuscitation Status: DNR-Comfort Care-Arrest <Renny Kumar - Last Filed: 08/05/17 13:23> Date of Encounter: 08/05/17 Palliative-CN HPI - Data of Consult Requesting Physician: Aurora Mckeon MD Primary Care Provider: PCP NONE - Consult Narrative History of present illness: Ms. Savage is a 66 year old female CC: Aurora Mckeon MD Palliative Care-Exam - Constitutional Vitals: Temp Pulse Resp BP Pulse Ox 98.2 F 84 32 133/75 92 08/05/17 11:28 08/05/17 12:00 08/05/17 12:00 08/05/17 12:00 08/05/17 12:00 Internal Medicine - CN: Reslt - Labs CBC & Chem 7: 08/04/17 07:18 08/04/17 04:51 Labs: Cardiac Enzymes 08/04/17 Range/Units 13:33 Troponin I 0.26 H* (0-0.03) ng/mL - ABG Interpretation ABG results: ABG ABG pH 7.43 pH Units (7.32-7.45) 08/05/17 05:43 ABG pCO2 34 mmHg (35-45) L 08/05/17 05:43 ABG pO2 97 mmHg (85-104) 08/05/17 05:43 ABG O2 Saturation 98 % (95-98) 08/05/17 05:43 PT/INR, D-dimer PT 11.2 Seconds (9.4-12.1) 08/04/17 04:51 - Attending Attestation I examined this patient and my medical decision-making was reviewed with the Resident Physician. I agree with the documented findings, disposition and treatment plan as described except to the extent set forth below. no docummentation is available at all of [facility] or guardian staus of family. I have attempted to reach nancy Earl at [phone] no answer and same for son Vinny at [phone] will cont to try to reach. pt has no c/o at this time a nd is otlerating the et tube well Palliative Quality Code Status: 08/04/17 08:28 CODE [Resuscitation Status: Active] [RES] Routine Comment: Resuscitation Status: DNR-Comfort Care-Arrest
[2017-08-05] MEDS: Dexmedetomidine HCl 400 MCG/100 ML MLS IVC SCH (17:09)
[2017-08-05] MEDS: FentaNYL (PF) 1,000 MCG in 0.9 % Sodium Chloride 80 ML IVC SCH (17:11)
--- NOTE | 2017-08-05 17:35 | Event Note ---
Date of Encounter: 08/05/17 Time of Encounter: 17:00 met with sons (guardians) they will bring in paper work. after discussion they request dnr i status in addition to dnr a, orders placed
--- NOTE | 2017-08-05 17:47 | Neurology Progress Note ---
Date of Encounter: 08/05/17 Time of Encounter: 17:44 Assessment and Plan (1) Seizure Current Visit: Yes Status: Acute Known breakthrough seizure, partial seizure with secondary generalization, secondary to previous CVA involving the left MCA. On keppra 1000mg bid now without recurrent seizures since admission. Now in the process of weaning off mechanical ventilation. Will continue keppra 100mg bid. Patient can be followed up in neurology clinic to manage her seizures. Please continue medical and supportive care. Subjective Principal diagnosis: Seizure Interval history: Patient seen and examined She has no recurrent seizures since admission. She takes keppra 1000mg bid. She is on mechanical ventilation and is not on any sedation. She is wide awake but has difficulty weaning off mechanical ventilation Objective - Constitutional Vitals: Temp Pulse Resp BP Pulse Ox 99.3 F 92 20 144/76 99 08/05/17 16:33 08/05/17 17:00 08/05/17 17:00 08/05/17 17:00 08/05/17 17:00 - Neurological Exam Sensorimotor examination: Present: other (Difficult to assess, grossly intact) Motor Examination: Present: other (Shows right hemiparesis) Motor examination - right side: 3/5: deltoids, biceps, triceps, wrist flexion, wrist extension, human resources hr generalist, hip flexors, tibialis Anterior, quadriceps, toe extension (EHL), plantarflexion Motor examination - left side: 5/5: deltoids, biceps, triceps, wrist flexion, wrist extension, hip flexors, human resources hr generalist, quadriceps, tibialis Anterior, toe extension (EHL), plantarflexion Sensation intact: Present: other (Grossly intact) Posture: Present: other (None) Reflexes: Biceps: 1+ (Brisk to the right side), Triceps: 1+ (Brisk to the right side), Brachioradialis: 1+ (Brisk to the right side), Patella: 1+ (Brisk to the right side), Achilles: 1+ (Brisk to the right side) Mental Status Examination: Present: awake, alert, oriented to person, oriented to place, oriented to time, opens eyes to voice, opens eyes to noxious stimulation, makes eye contact, follows simple commands Cranial nerve examination: Present: PERRL, EOMI (Full movements), visual brown intact (Unable to assess), corneal reflexes brisk symmetrically, sensory to face intact Results - Laboratory Findings CBC and BMP: 08/04/17 07:18 08/04/17 04:51 Abnormal lab findings: Abnormal lab results WBC 20.8 K/mcL (4.3-11.1) H 08/04/17 07:18 RBC 3.49 M/mcL (3.82-4.97) L 08/04/17 07:18 Hgb 10.0 g/dL (11.5-15.4) L 08/04/17 07:18 Hct 30.9 % (35.3-44.9) L 08/04/17 07:18 RDW 16.0 % (11.5-14.5) H 08/04/17 07:18 Neutrophils # 17.5 K/mcL (1.6-8.9) H 08/04/17 07:18 Monocytes # 1.7 K/mcL (0.0-1.3) H 08/04/17 07:18 APTT 21.3 Seconds (26.0-36.0) L 08/04/17 04:51 ABG pCO2 34 mmHg (35-45) L 08/05/17 05:43 BUN 23 mg/dL (7-20) H 08/04/17 04:51 Glucose 104 mg/dL (70-99) H 08/04/17 04:51 POC Glucose 127 (58-89) H 08/05/17 17:23 Magnesium 1.3 mg/dL (1.6-2.6) L 08/04/17 08:02 AST 60 Units/L (5-34) H 08/04/17 04:51 Troponin I 0.26 ng/mL (0-0.03) H* 08/04/17 13:33 Serum Total Protein 5.9 g/dL (6.0-8.3) L 08/04/17 04:51 Albumin 2.4 g/dL (3.5-5.0) L 08/04/17 04:51 Albumin/Globulin Ratio 0.7 (1.1-2.2) L 08/04/17 04:51 Consult Discharge Plan - Plan Referrals: NONE,PCP [Primary Care Provider] -
[2017-08-06] MEDS: Insulin LISPRO 300 UNITS/3 ML VIAL SQ SCH ×4 (00:17→17:10)
[2017-08-06] MEDS: Lacri-Lube 3.5 GM TUBE BOTH EYES SCH ×6 (00:17→19:52)
[2017-08-06 04:45] LABS: Basophils % 0.3 %; Eosinophils # 0.5 K/mcL (0.0-0.6); Eosinophils % 3.9 %; Hematocrit 31.1 % (35.3-44.9); Hemoglobin 9.9 g/dL (11.5-15.4); Immature Granulocytes % 0.6 % (0-4); Immature Platelets 3.9 % (1.1-6.1); Lymphocytes # 1.7 K/mcL (0.6-4.6); Lymphocytes % 13.3 %; Mean Corpuscular HGB Conc 31.8 g/dL (31.6-35.5); Mean Corpuscular Hemoglobin 28.1 pg (28.0-33.3); Mean Corpuscular Volume 88.4 fL (83.0-100.0); Mean Platelet Volume 11.1 fL (9.4-12.4); Monocytes # 1.1 K/mcL (0.0-1.3); Neutrophils # 9.1 K/mcL (1.6-8.9); Platelet Count 360 K/mcL (140-400); Red Blood Count 3.52 M/mcL (3.82-4.97); Segmented Neutrophils % 72.9 %
[2017-08-06 04:46] LABS: ABG Base Excess -1.3 mEq/L (-2.0 to 3.0); ABG HCO3 23 mEq/L (21-27); ABG Oxygen Saturation 97 % (95-98); ABG PCO2 34 mmHg (35-45); ABG PH 7.43 pH Units (7.32-7.45); ABG PO2 84 mmHg (85-104); ABG TCO2 23.6 mEq/L (20-26)
[2017-08-06 04:47] LABS: Blood Gas FiO2 30 %
[2017-08-06] MEDS: *HR* Heparin 5,000 UNIT/ML VIAL SQ SCH ×2 (05:42→16:51)
[2017-08-06] MEDS: 0.9 % Sodium Chloride 1,000 ML IVC SCH (05:44)
[2017-08-06 06:15] LABS: Alanine Aminotransferase 33 Units/L (0-55); Albumin 2.5 g/dL (3.5-5.0); Albumin/Globulin Ratio 0.7 (1.1-2.2); Alkaline Phosphatase 116 Units/L (38-126); Aspartate Amino Transferase 30 Units/L (5-34); BUN/Creatinine Ratio 19 (6-26); Blood Urea Nitrogen 17 mg/dL (7-20); Calcium 8.8 mg/dL (8.6-10.8); Carbon Dioxide 19 mEq/L (19-29); Chloride 113 mEq/L (98-109); Globulin 3.7 g/dL (2.4-3.5); Glucose 133 mg/dL (70-99); Osmolality,Calculated 299 (280-300); Potassium 3.2 mEq/L (3.5-4.5); Sodium 143 mEq/L (136-145); Total Protein 6.2 g/dL (6.0-8.3); eGFR For African Americans > 60 (> 60); eGFR For Non-African Americans > 60 (> 60)
[2017-08-06 06:16] LABS: Bilirubin,Total < 0.2 mg/dL (0.2-1.2)
[2017-08-06] MEDS: Aspirin 81 MG TAB.CHEW PO SCH (07:42)
[2017-08-06] MEDS: levETIRAcetam 500 MG/5 ML UDC PO SCH ×2 (07:42→19:57)
[2017-08-06] MEDS: Pantoprazole 40 MG VIAL IVP SCH (07:42)
[2017-08-06] MEDS: Chlorhexidine Rinse 15 ML MOUTHWASH MM SCH ×2 (07:43→19:57)
--- NOTE | 2017-08-06 08:47 | Palliative Progress Note ---
Date of Encounter: 08/06/17 Time of Encounter: 07:10 - Assessment and plan (1) History of CVA with residual deficit Current Visit: Yes Status: Acute Assessment and plan: this is a year ago. Do not believe the patient will have any more meaningful recovery at this point in time (2) Seizure Current Visit: Yes Status: Acute Assessment and plan: Begun over the last several months. This is in all likelihood is due to scar tissue from the CVA. (3) Goals of care, counseling/discussion Current Visit: Yes Status: Acute Assessment and plan: Long discussion with the patient's sons, who are guardian paperwork is to be brought in today. CODE STATUS is now DNR CCA DNI. However they do wish the patient to be weaned normally. There is no discussion of withdrawal of care at this time however they do know they do not wish to have a trach placed. - Time Spent With Patient Total time spent is greater than 50% in coordination of care (as documented) at patient's floor/unit and/or counseling patient: - Subjective Interval history: She is intubated, on vent, however is awake and alert yesterday afternoon she was stating that the tube was causing her no discomfort whatsoever and she was tolerating it quite well today she may not be tolerating it quite as well. But has no general complaints of otherwise. Long discussion with her sons who are actually guardians. (They are supposed to bring in the paperwork today) she is now DNR CCA DNI, they do wish for the patient to get weaned normally and there is no discussion at this time of withdrawal of care. - Constitutional Vitals: Abnormal lab results WBC 12.4 K/mcL (4.3-11.1) H 08/06/17 04:32 RBC 3.52 M/mcL (3.82-4.97) L 08/06/17 04:32 Hgb 9.9 g/dL (11.5-15.4) L 08/06/17 04:32 Hct 31.1 % (35.3-44.9) L 08/06/17 04:32 RDW 16.0 % (11.5-14.5) H 08/06/17 04:32 Neutrophils # 9.1 K/mcL (1.6-8.9) H 08/06/17 04:32 APTT 21.3 Seconds (26.0-36.0) L 08/04/17 04:51 ABG pCO2 34 mmHg (35-45) L 08/06/17 04:35 ABG pO2 84 mmHg (85-104) L 08/06/17 04:35 Potassium 3.2 mEq/L (3.5-4.5) L 08/06/17 04:32 Chloride 113 mEq/L (98-109) H 08/06/17 04:32 Glucose 133 mg/dL (70-99) H 08/06/17 04:32 POC Glucose 132 (58-89) H 08/06/17 05:52 Magnesium 1.3 mg/dL (1.6-2.6) L 08/04/17 08:02 Total Bilirubin < 0.2 mg/dL (0.2-1.2) L 08/06/17 04:32 Troponin I 0.26 ng/mL (0-0.03) H* 08/04/17 13:33 Albumin 2.5 g/dL (3.5-5.0) L 08/06/17 04:32 Globulin 3.7 g/dL (2.4-3.5) H 08/06/17 04:32 Albumin/Globulin Ratio 0.7 (1.1-2.2) L 08/06/17 04:32 General appearance: Present: no acute distress - Head Head exam: Present: atraumatic, normal inspection - Eye Eye exam: Present: normal appearance - ENT ENT exam: Present: mucous membranes moist - Respiratory Respiratory exam: Present: decreased breath sounds (Transmitted ventilator sounds) - Cardiovascular Cardiovascular exam: Present: RRR - GI/Abdominal GI/Abdominal exam: Present: normal bowel sounds, soft. Absent: tenderness - Extremities Exam Extremities exam: Present: normal inspection. Absent: tenderness - Neurological Exam Neurological exam: Present: alert, motor sensory deficit (No movement right side , however the patient does look to the right) - Psychiatric Psychiatric exam: Absent: agitated, anxious - Skin Skin exam: Present: dry, warm Palliative Quality Palliative Quality: Screen for Code Status: Yes, Screen for Goals of Care: Yes, Screen for Pain: Yes, If Pain Regimen Started, Initiate Bowel Regimen: NA, Screen for Nausea/Vomitting: Yes Code Status: 08/04/17 08:28 CODE [Resuscitation Status: Active] [RES] Routine Comment: Resuscitation Status: DNR-Comfort Care-Arrest CODE [Resuscitation Status: Active] [RES] Routine Comment: Resuscitation Status: [id number] - Labs CBC & Chem 7: 08/06/17 04:32 08/06/17 04:32 Labs: Laboratory Results - last 24 hr 08/04/17 08/05/17 08/05/17 00:51 11:32 17:23 WBC RBC Hgb Hct MCV MCH MCHC RDW Plt Count MPV Immature Gran % Seg Neutrophils % Lymphocytes % Monocytes % Eosinophils % Basophils % Neutrophils # Lymphocytes # Monocytes # Eosinophils # Basophils # Immature Plt Fraction ABG pH ABG pCO2 ABG pO2 ABG HCO3 ABG Total CO2 ABG O2 Saturation ABG Base Excess Blood Gas Modality Inspired O2 Sodium Potassium Chloride Carbon Dioxide BUN Creatinine Est GFR ( Amer) Est GFR (Non-Af Amer) BUN/Creatinine Ratio Glucose POC Glucose 115 H 127 H Calculated Osmolality Calcium Total Bilirubin AST ALT Alkaline Phosphatase Serum Total Protein Albumin Globulin Albumin/Globulin Ratio Levetiracetam 39 08/05/17 08/06/17 08/06/17 23:49 04:32 04:32 WBC 12.4 H RBC 3.52 L Hgb 9.9 L Hct 31.1 L MCV 88.4 MCH 28.1 MCHC 31.8 RDW 16.0 H Plt Count 360 MPV 11.1 Immature Gran % 0.6 Seg Neutrophils % 72.9 Lymphocytes % 13.3 Monocytes % 9.0 Eosinophils % 3.9 Basophils % 0.3 Neutrophils # 9.1 H Lymphocytes # 1.7 Monocytes # 1.1 Eosinophils # 0.5 Basophils # 0.0 Immature Plt Fraction 3.9 ABG pH ABG pCO2 ABG pO2 ABG HCO3 ABG Total CO2 ABG O2 Saturation ABG Base Excess Blood Gas Modality Inspired O2 Sodium 143 Potassium 3.2 L Chloride 113 H Carbon Dioxide 19 BUN 17 Creatinine 0.89 Est GFR ( Amer) > 60 Est GFR (Non-Af Amer) > 60 BUN/Creatinine Ratio 19 Glucose 133 H POC Glucose 133 H Calculated Osmolality 299 Calcium 8.8 Total Bilirubin < 0.2 L AST 30 ALT 33 Alkaline Phosphatase 116 Serum Total Protein 6.2 Albumin 2.5 L Globulin 3.7 H Albumin/Globulin Ratio 0.7 L Levetiracetam 08/06/17 08/06/17 04:35 05:52 WBC RBC Hgb Hct MCV MCH MCHC RDW Plt Count MPV Immature Gran % Seg Neutrophils % Lymphocytes % Monocytes % Eosinophils % Basophils % Neutrophils # Lymphocytes # Monocytes # Eosinophils # Basophils # Immature Plt Fraction ABG pH 7.43 ABG pCO2 34 L ABG pO2 84 L ABG HCO3 23 ABG Total CO2 23.6 ABG O2 Saturation 97 ABG Base Excess -1.3 Blood Gas Modality ASSIST CONTROL Inspired O2 30 Sodium Potassium Chloride Carbon Dioxide BUN Creatinine Est GFR ( Amer) Est GFR (Non-Af Amer) BUN/Creatinine Ratio Glucose POC Glucose 132 H Calculated Osmolality Calcium Total Bilirubin AST ALT Alkaline Phosphatase Serum Total Protein Albumin Globulin Albumin/Globulin Ratio Levetiracetam - ABG Interpretation ABG results: ABG ABG pH 7.43 pH Units (7.32-7.45) 08/06/17 04:35 ABG pCO2 34 mmHg (35-45) L 08/06/17 04:35 ABG pO2 84 mmHg (85-104) L 08/06/17 04:35 ABG O2 Saturation 97 % (95-98) 08/06/17 04:35 PT/INR, D-dimer PT 11.2 Seconds (9.4-12.1) 08/04/17 04:51 Consult Discharge Plan - Plan Referrals: NONE,PCP [Primary Care Provider] -
[2017-08-06] MEDS: Potassium Chloride Elixir 20 MEQ/15 ML UDC GTUBE PRN ×2 (09:33→15:28)
[2017-08-06] MEDS: Dexmedetomidine HCl 400 MCG/100 ML MLS IVC SCH (11:57)
[2017-08-06] MEDS: Miconazole w/zinc oxide&karaya 92 APPL/92 GM TUBE TP SCH ×3 (11:59→19:57)
--- NOTE | 2017-08-06 13:17 | Pulmonology Progress Note ---
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 Will talk with son's prior to extubation -palliative care is assisting with the communication with patient's son's- code status was changed to DNR CCA DNI. The son's stated they do not want the patient to have a trach should she need one. They want her to be weaned from the ventilator normally but do not want to reintubate her. 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 -Repeat CT showed no significant change from previous imaging -Neurology consulted and patient is to f/u outpatient for breakthrough seizure -she is able to follow verbal commands -no evidence or physical signs of new stroke (5) Diabetes mellitus Current Visit: Yes Status: Chronic -will continue medium dose sliding scale Qualifiers: Diabetes mellitus type: type 2 Diabetes mellitus complication status: with circulatory complication Diabetes mellitus complication detail: with other circulatory complications Diabetes mellitus intermediate insulin use: with termite control servicer use Qualified Code(s): E11.59 - Type 2 diabetes mellitus with other circulatory complications; Z79.4 - assisted (current) use of insulin (6) DVT prophylaxis Current Visit: Yes Status: Inactive heparin SQ Subjective Principal diagnosis: Seizure Interval history: Patient had CPAP trial today and was on it for 3hrs until she was placed on ventilator settings again. According to her nurse she complained on discomfort with the tube, she followed commands and was alert and oriented. No overnight events Palliative care talked with sons who are guardians and code status was changed to DNR CCA DNI- but she is to be weaned normally. Objective PUL Vital signs: Last Vital Signs Temp 97.9 F 08/06/17 11:50 Pulse 59 08/06/17 13:00 Resp 13 08/06/17 13:00 BP 121/70 08/06/17 13:00 Pulse Ox 96 08/06/17 13:00 General appearance: no acute distress, asleep Eyes: nonicteric Neck: supple Effort: normal Auscultation: bilateral: clear Cardiovascular: regular rate and rhythm Gastrointestinal: normoactive bowel sounds, soft, non-distended Extremities: no cyanosis, no edema Ventilator Settings Ventilator Settings: Ventilator Settings, Last 8 Hours Ventilator Mode A/C Ventilator Mode A/C Ventilator Mode A/C Ventilator Mode A/C Ventilator Mode A/C Ventilator Mode CPAP Ventilator Mode CPAP Ventilator Mode CPAP Ventilator Tidal Volume 450 Setting Ventilator Tidal Volume 450 Setting Ventilator Tidal Volume 450 Setting Ventilator Tidal Volume 450 Setting Ventilator Tidal Volume 450 Setting Ventilator Tidal Volume 450 Setting Ventilator Respiratory Rate 12 Setting Ventilator Respiratory Rate 12 Setting Ventilator Respiratory Rate 12 Setting Ventilator Respiratory Rate 12 Setting Ventilator Respiratory Rate 12 Setting Ventilator Respiratory Rate 12 Setting Actual Respiratory Rate 13 Actual Respiratory Rate 18 Actual Respiratory Rate 17 Actual Respiratory Rate 17 Actual Respiratory Rate 24 Positive End Expiratory 5 Pressure Positive End Expiratory 5 Pressure Positive End Expiratory 5 Pressure Positive End Expiratory 5 Pressure Positive End Expiratory 5 Pressure Positive End Expiratory 5 Pressure Peak Inspiratory Airway 30 Pressure Peak Inspiratory Airway 34 Pressure Peak Inspiratory Airway 41 Pressure Peak Inspiratory Airway 41 Pressure Peak Inspiratory Airway 44 Pressure Results - Laboratory Findings CBC and BMP: 08/06/17 04:32 08/06/17 04:32 ABG ABG pH 7.43 pH Units (7.32-7.45) 08/06/17 04:35 ABG pCO2 34 mmHg (35-45) L 08/06/17 04:35 ABG pO2 84 mmHg (85-104) L 08/06/17 04:35 ABG O2 Saturation 97 % (95-98) 08/06/17 04:35 PT/INR, D-dimer PT 11.2 Seconds (9.4-12.1) 08/04/17 04:51 Abnormal lab findings: Abnormal lab results WBC 12.4 K/mcL (4.3-11.1) H 08/06/17 04:32 RBC 3.52 M/mcL (3.82-4.97) L 08/06/17 04:32 Hgb 9.9 g/dL (11.5-15.4) L 08/06/17 04:32 Hct 31.1 % (35.3-44.9) L 08/06/17 04:32 RDW 16.0 % (11.5-14.5) H 08/06/17 04:32 Neutrophils # 9.1 K/mcL (1.6-8.9) H 08/06/17 04:32 APTT 21.3 Seconds (26.0-36.0) L 08/04/17 04:51 ABG pCO2 34 mmHg (35-45) L 08/06/17 04:35 ABG pO2 84 mmHg (85-104) L 08/06/17 04:35 Potassium 3.2 mEq/L (3.5-4.5) L 08/06/17 04:32 Chloride 113 mEq/L (98-109) H 08/06/17 04:32 Glucose 133 mg/dL (70-99) H 08/06/17 04:32 POC Glucose 123 (58-89) H 08/06/17 11:32 Magnesium 1.3 mg/dL (1.6-2.6) L 08/04/17 08:02 Total Bilirubin < 0.2 mg/dL (0.2-1.2) L 08/06/17 04:32 Troponin I 0.26 ng/mL (0-0.03) H* 08/04/17 13:33 Albumin 2.5 g/dL (3.5-5.0) L 08/06/17 04:32 Globulin 3.7 g/dL (2.4-3.5) H 08/06/17 04:32 Albumin/Globulin Ratio 0.7 (1.1-2.2) L 08/06/17 04:32 - Microbiology Findings Microbiology Findings: Microbiology, Last 48 Hours 08/04/17 00:51 Blood Culture - Preliminary Peripheral Venipuncture No growth. 08/04/17 00:51 Blood Culture - Preliminary Peripheral Venipuncture No growth. - Clinical Findings Intake & Output: Intake & Output 08/05/17 08/06/17 08/06/17 23:59 07:59 15:59 Intake Total 1195.7 / 1195.7 1720 / 1720 396.3 / 396.3 Output Total 475 / 475 200 / 200 200 / 200 Balance 720.7 / 720.7 1520 / 1520 196.3 / 196.3 Weight 68.8 kg Consult Discharge Plan - Plan Referrals: NONE,PCP [Primary Care Provider] - <Aurora Mckeon - Last Filed: 08/06/17 16:35> Date of Encounter: 08/06/17 Objective PUL Vital signs: Last Vital Signs Temp 97.9 F 08/06/17 16:01 Pulse 86 08/06/17 15:00 Resp 18 08/06/17 15:00 BP 96/78 08/06/17 15:00 Pulse Ox 95 08/06/17 15:00 Ventilator Settings Ventilator Settings: Ventilator Settings, Last 8 Hours Ventilator Mode A/C Ventilator Mode A/C Ventilator Mode A/C Ventilator Mode A/C Ventilator Mode A/C Ventilator Mode A/C Ventilator Mode A/C Ventilator Mode A/C Ventilator Tidal Volume 450 Setting Ventilator Tidal Volume 450 Setting Ventilator Tidal Volume 450 Setting Ventilator Tidal Volume 450 Setting Ventilator Tidal Volume 450 Setting Ventilator Tidal Volume 450 Setting Ventilator Tidal Volume 450 Setting Ventilator Tidal Volume 450 Setting Ventilator Respiratory Rate 12 Setting Ventilator Respiratory Rate 12 Setting Ventilator Respiratory Rate 12 Setting Ventilator Respiratory Rate 12 Setting Ventilator Respiratory Rate 12 Setting Ventilator Respiratory Rate 12 Setting Ventilator Respiratory Rate 12 Setting Ventilator Respiratory Rate 12 Setting Actual Respiratory Rate 18 Actual Respiratory Rate 20 Actual Respiratory Rate 13 Actual Respiratory Rate 18 Actual Respiratory Rate 21 Actual Respiratory Rate 17 Actual Respiratory Rate 17 Actual Respiratory Rate 24 Positive End Expiratory 5 Pressure Positive End Expiratory 5 Pressure Positive End Expiratory 5 Pressure Positive End Expiratory 5 Pressure Positive End Expiratory 5 Pressure Positive End Expiratory 5 Pressure Positive End Expiratory 5 Pressure Positive End Expiratory 5 Pressure Peak Inspiratory Airway 31 Pressure Peak Inspiratory Airway 32 Pressure Peak Inspiratory Airway 30 Pressure Peak Inspiratory Airway 34 Pressure Peak Inspiratory Airway 35 Pressure Peak Inspiratory Airway 41 Pressure Peak Inspiratory Airway 41 Pressure Peak Inspiratory Airway 44 Pressure Results - Laboratory Findings CBC and BMP: 08/06/17 04:32 08/06/17 13:58 ABG ABG pH 7.43 pH Units (7.32-7.45) 08/06/17 04:35 ABG pCO2 34 mmHg (35-45) L 08/06/17 04:35 ABG pO2 84 mmHg (85-104) L 08/06/17 04:35 ABG O2 Saturation 97 % (95-98) 08/06/17 04:35 PT/INR, D-dimer PT 11.2 Seconds (9.4-12.1) 08/04/17 04:51 Abnormal lab findings: Abnormal lab results WBC 12.4 K/mcL (4.3-11.1) H 08/06/17 04:32 RBC 3.52 M/mcL (3.82-4.97) L 08/06/17 04:32 Hgb 9.9 g/dL (11.5-15.4) L 08/06/17 04:32 Hct 31.1 % (35.3-44.9) L 08/06/17 04:32 RDW 16.0 % (11.5-14.5) H 08/06/17 04:32 Neutrophils # 9.1 K/mcL (1.6-8.9) H 08/06/17 04:32 APTT 21.3 Seconds (26.0-36.0) L 08/04/17 04:51 ABG pCO2 34 mmHg (35-45) L 08/06/17 04:35 ABG pO2 84 mmHg (85-104) L 08/06/17 04:35 Chloride 113 mEq/L (98-109) H 08/06/17 04:32 Glucose 133 mg/dL (70-99) H 08/06/17 04:32 POC Glucose 123 (58-89) H 08/06/17 11:32 Magnesium 1.3 mg/dL (1.6-2.6) L 08/04/17 08:02 Total Bilirubin < 0.2 mg/dL (0.2-1.2) L 08/06/17 04:32 Troponin I 0.26 ng/mL (0-0.03) H* 08/04/17 13:33 Albumin 2.5 g/dL (3.5-5.0) L 08/06/17 04:32 Globulin 3.7 g/dL (2.4-3.5) H 08/06/17 04:32 Albumin/Globulin Ratio 0.7 (1.1-2.2) L 08/06/17 04:32 - Microbiology Findings Microbiology Findings: Microbiology, Last 48 Hours 08/04/17 00:51 Blood Culture - Preliminary Peripheral Venipuncture No growth. 08/04/17 00:51 Blood Culture - Preliminary Peripheral Venipuncture No growth. - Clinical Findings Intake & Output: Intake & Output 08/06/17 08/06/17 08/06/17 07:59 15:59 23:59 Intake Total 1720 / 1720 645.3 / 645.3 Output Total 200 / 200 200 / 200 150 / 150 Balance 1520 / 1520 445.3 / 445.3 -150 / -150 Weight 68.8 kg - Attending Attestation I examined this patient and my medical decision-making was reviewed with the Resident Physician. I agree with the documented findings, disposition and treatment plan as described except to the extent set forth below. Patient seen and examined. Labs, radiology, chart personally reviewed. Agree with resident's history and physical, assessment, plan with following comments: [employer]: Patient does not follows commands, but she is awake Pulmonary: Acceptable oxygenation and ventilation. Patient tolerated CPAP at higher pressure support and when the pressure support lowered to 8 he had more problems. When family available we will discuss the option of extubation to BiPAP. Cardiovascular: stable GI: Nutrition per dietary and GI prophylaxis per routine Heme: DVT prophylaxis per routine Renal; urine out put and renal funtion reviewed Endorcine: blood glucose is monitored Lines: all lines checked and no evidence of infections Skin: skin care to prevent pressure ulcers per nursing routine care
[2017-08-06] MEDS: FentaNYL (PF) 1,000 MCG in 0.9 % Sodium Chloride 80 ML IVC SCH (15:18)
[2017-08-07] MEDS: Lacri-Lube 3.5 GM TUBE BOTH EYES SCH ×6 (00:21→19:55)
[2017-08-07] MEDS: Insulin LISPRO 300 UNITS/3 ML VIAL SQ SCH ×4 (00:29→18:08)
[2017-08-07] MEDS: *HR* Heparin 5,000 UNIT/ML VIAL SQ SCH ×2 (05:29→18:17)
[2017-08-07 05:30] LABS: ABG Base Excess -1.1 mEq/L (-2.0 to 3.0); ABG HCO3 24 mEq/L (21-27); ABG Oxygen Saturation 95 % (95-98); ABG PCO2 38 mmHg (35-45); ABG PO2 77 mmHg (85-104); ABG TCO2 24.7 mEq/L (20-26); Blood Gas FiO2 30 %
[2017-08-07] MEDS: Chlorhexidine Rinse 15 ML MOUTHWASH MM SCH ×2 (08:35→21:22)
[2017-08-07] MEDS: levETIRAcetam 500 MG/5 ML UDC PO SCH ×2 (08:35→21:22)
[2017-08-07] MEDS: Miconazole w/zinc oxide&karaya 92 APPL/92 GM TUBE TP SCH ×3 (08:35→21:22)
[2017-08-07] MEDS: Aspirin 81 MG TAB.CHEW PO SCH (08:35)
[2017-08-07] MEDS: Pantoprazole 40 MG VIAL IVP SCH (08:35)
--- NOTE | 2017-08-07 09:29 | Pulmonology Progress Note ---
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 Mental status cannot be fully assessed due to the patient being intubated. Could be resolved. Clinically correlate once the patient is extubated. Qualifiers: Altered mental status type: unspecified Qualified Code(s): R41.82 - Altered mental status, unspecified (3) History of CVA with residual deficit Current Visit: Yes Status: Acute Patient has history of CVA with right sided paralysis, dysphagia, and is non- verbal. Repeat CT showed no significant change from previous imaging. (4) Acute respiratory failure Current Visit: Yes Status: Acute -CPAP trial this morning, multiple failed attempts for the past 3 days -will continue to wean patient off and possibly extubate the patient today. Will talk with son's prior to extubation -palliative care is assisting with the communication with patient's son's- code status was changed to DNR CCA DNI. The son's stated they do not want the patient to have a trach should she need one. They want her to be weaned from the ventilator normally but do not want to reintubate her. -She is on PEEP 5 -WBC trending down -She is stable alert and able to follow verbal commands -will continue to closely monitor patient Qualifiers: Respiratory failure complication: unspecified whether with hypoxia or hypercapnia Qualified Code(s): J96.00 - Acute respiratory failure, unspecified whether with hypoxia or hypercapnia (5) Diabetes mellitus Current Visit: Yes Status: Chronic Continue medium dose sliding scale for patient. Qualifiers: Diabetes mellitus type: type 2 Diabetes mellitus complication status: with circulatory complication Diabetes mellitus complication detail: with other circulatory complications Diabetes mellitus fpc insulin use: with fpc use Qualified Code(s): E11.59 - Type 2 diabetes mellitus with other circulatory complications; Z79.4 - [facility] (current) use of insulin (6) DVT prophylaxis Current Visit: Yes Status: Inactive Patient started on subq heparin. Subjective Principal diagnosis: Seizure Interval history: No episodes overnight. Patient able to respond to some commands at this time. Minimal sedation needed to ensure patient remains intubated. Multiple failed attempts at CPAP trial. Will trial again this AM. Hope to speak to patient's family today about extubating now that she is a DNR/DNI. Objective PUL Vital signs: Last Vital Signs Temp 98.0 F 08/07/17 07:45 Pulse 68 08/07/17 09:00 Resp 17 08/07/17 09:19 BP 116/64 08/07/17 09:19 Pulse Ox 98 08/07/17 09:19 General appearance: no acute distress Eyes: nonicteric ENT: oropharynx moist Neck: supple, no JVD Effort: normal Auscultation: bilateral: clear Cardiovascular: regular rate and rhythm Gastrointestinal: normoactive bowel sounds, non-distended Integumentary: normal Extremities: no cyanosis, pulses normal Musculoskeletal: no deformities Gait: normal posture unable to assess due to mental status affect normal Ventilator Settings Ventilator Settings: Ventilator Settings, Last 8 Hours Ventilator Mode CPAP Ventilator Mode CPAP Ventilator Mode A/C Ventilator Mode A/C Ventilator Mode A/C Ventilator Mode A/C Ventilator Mode A/C Ventilator Mode A/C Ventilator Mode A/C Ventilator Mode A/C Ventilator Mode A/C Ventilator Mode A/C Ventilator Mode A/C Ventilator Tidal Volume 450 Setting Ventilator Tidal Volume 450 Setting Ventilator Tidal Volume 450 Setting Ventilator Tidal Volume 450 Setting Ventilator Tidal Volume 450 Setting Ventilator Tidal Volume 450 Setting Ventilator Tidal Volume 450 Setting Ventilator Tidal Volume 450 Setting Ventilator Tidal Volume 450 Setting Ventilator Tidal Volume 450 Setting Ventilator Tidal Volume 450 Setting Ventilator Respiratory Rate 12 Setting Ventilator Respiratory Rate 12 Setting Ventilator Respiratory Rate 12 Setting Ventilator Respiratory Rate 12 Setting Ventilator Respiratory Rate 12 Setting Ventilator Respiratory Rate 12 Setting Ventilator Respiratory Rate 12 Setting Ventilator Respiratory Rate 12 Setting Ventilator Respiratory Rate 12 Setting Ventilator Respiratory Rate 12 Setting Ventilator Respiratory Rate 12 Setting Actual Respiratory Rate 16 Actual Respiratory Rate 16 Actual Respiratory Rate 15 Actual Respiratory Rate 12 Actual Respiratory Rate 13 Actual Respiratory Rate 15 Actual Respiratory Rate 12 Positive End Expiratory 5 Pressure Positive End Expiratory 5 Pressure Positive End Expiratory 5 Pressure Positive End Expiratory 5 Pressure Positive End Expiratory 5 Pressure Positive End Expiratory 5 Pressure Positive End Expiratory 5 Pressure Positive End Expiratory 5 Pressure Positive End Expiratory 5 Pressure Positive End Expiratory 5 Pressure Positive End Expiratory 5 Pressure Positive End Expiratory 5 Pressure Positive End Expiratory 5 Pressure Peak Inspiratory Airway 15 Pressure Peak Inspiratory Airway 15 Pressure Peak Inspiratory Airway 15 Pressure Peak Inspiratory Airway 27 Pressure Peak Inspiratory Airway 28 Pressure Peak Inspiratory Airway 32 Pressure Peak Inspiratory Airway 32 Pressure Results - Laboratory Findings CBC and BMP: 08/06/17 04:32 08/06/17 13:58 ABG ABG pH 7.40 pH Units (7.32-7.45) 08/07/17 05:24 ABG pCO2 38 mmHg (35-45) 08/07/17 05:24 ABG pO2 77 mmHg (85-104) L 08/07/17 05:24 ABG O2 Saturation 95 % (95-98) 08/07/17 05:24 PT/INR, D-dimer PT 11.2 Seconds (9.4-12.1) 08/04/17 04:51 Abnormal lab findings: Abnormal lab results WBC 12.4 K/mcL (4.3-11.1) H 08/06/17 04:32 RBC 3.52 M/mcL (3.82-4.97) L 08/06/17 04:32 Hgb 9.9 g/dL (11.5-15.4) L 08/06/17 04:32 Hct 31.1 % (35.3-44.9) L 08/06/17 04:32 RDW 16.0 % (11.5-14.5) H 08/06/17 04:32 Neutrophils # 9.1 K/mcL (1.6-8.9) H 08/06/17 04:32 APTT 21.3 Seconds (26.0-36.0) L 08/04/17 04:51 ABG pO2 77 mmHg (85-104) L 08/07/17 05:24 Chloride 113 mEq/L (98-109) H 08/06/17 04:32 Glucose 133 mg/dL (70-99) H 08/06/17 04:32 POC Glucose 116 (58-89) H 08/07/17 05:23 Magnesium 1.3 mg/dL (1.6-2.6) L 08/04/17 08:02 Total Bilirubin < 0.2 mg/dL (0.2-1.2) L 08/06/17 04:32 Troponin I 0.26 ng/mL (0-0.03) H* 08/04/17 13:33 Albumin 2.5 g/dL (3.5-5.0) L 08/06/17 04:32 Globulin 3.7 g/dL (2.4-3.5) H 08/06/17 04:32 Albumin/Globulin Ratio 0.7 (1.1-2.2) L 08/06/17 04:32 - Microbiology Findings Microbiology Findings: Microbiology, Last 48 Hours 08/04/17 00:51 Blood Culture - Preliminary Peripheral Venipuncture No growth. 08/04/17 00:51 Blood Culture - Preliminary Peripheral Venipuncture No growth. - Clinical Findings Intake & Output: Intake & Output 08/06/17 08/07/17 08/07/17 23:59 07:59 15:59 Intake Total 498 / 498 791 / 791 75 / 75 Output Total 250 / 250 350 / 350 Balance 248 / 248 441 / 441 75 / 75 Weight 70.4 kg Consult Discharge Plan - Plan Referrals: NONE,PCP [Primary Care Provider] - <Aurora Mckeon - Last Filed: 08/07/17 12:15> Date of Encounter: 08/07/17 Objective PUL Vital signs: Last Vital Signs Temp 98 F 08/07/17 11:00 Pulse 67 08/07/17 12:00 Resp 16 08/07/17 12:00 BP 121/60 08/07/17 12:00 Pulse Ox 96 08/07/17 12:00 Ventilator Settings Ventilator Settings: Ventilator Settings, Last 8 Hours Ventilator Mode CPAP Ventilator Mode CPAP Ventilator Mode CPAP Ventilator Mode CPAP Ventilator Mode CPAP Ventilator Mode CPAP Ventilator Mode A/C Ventilator Mode A/C Ventilator Mode A/C Ventilator Mode A/C Ventilator Mode A/C Ventilator Mode A/C Ventilator Mode A/C Ventilator Mode A/C Ventilator Tidal Volume 450 Setting Ventilator Tidal Volume 450 Setting Ventilator Tidal Volume 450 Setting Ventilator Tidal Volume 450 Setting Ventilator Tidal Volume 450 Setting Ventilator Tidal Volume 450 Setting Ventilator Tidal Volume 450 Setting Ventilator Tidal Volume 450 Setting Ventilator Respiratory Rate 12 Setting Ventilator Respiratory Rate 12 Setting Ventilator Respiratory Rate 12 Setting Ventilator Respiratory Rate 12 Setting Ventilator Respiratory Rate 12 Setting Ventilator Respiratory Rate 12 Setting Ventilator Respiratory Rate 12 Setting Ventilator Respiratory Rate 12 Setting Actual Respiratory Rate 18 Actual Respiratory Rate 20 Actual Respiratory Rate 18 Actual Respiratory Rate 34 Actual Respiratory Rate 16 Actual Respiratory Rate 16 Actual Respiratory Rate 15 Actual Respiratory Rate 12 Actual Respiratory Rate 13 Actual Respiratory Rate 15 Actual Respiratory Rate 12 Positive End Expiratory 5 Pressure Positive End Expiratory 5 Pressure Positive End Expiratory 5 Pressure Positive End Expiratory 5 Pressure Positive End Expiratory 5 Pressure Positive End Expiratory 5 Pressure Positive End Expiratory 5 Pressure Positive End Expiratory 5 Pressure Positive End Expiratory 5 Pressure Positive End Expiratory 5 Pressure Positive End Expiratory 5 Pressure Positive End Expiratory 5 Pressure Positive End Expiratory 5 Pressure Peak Inspiratory Airway 15 Pressure Peak Inspiratory Airway 15 Pressure Peak Inspiratory Airway 15 Pressure Peak Inspiratory Airway 15 Pressure Peak Inspiratory Airway 15 Pressure Peak Inspiratory Airway 15 Pressure Peak Inspiratory Airway 27 Pressure Peak Inspiratory Airway 28 Pressure Peak Inspiratory Airway 32 Pressure Peak Inspiratory Airway 32 Pressure Results - Laboratory Findings CBC and BMP: 08/06/17 04:32 08/06/17 13:58 ABG ABG pH 7.40 pH Units (7.32-7.45) 08/07/17 05:24 ABG pCO2 38 mmHg (35-45) 08/07/17 05:24 ABG pO2 77 mmHg (85-104) L 08/07/17 05:24 ABG O2 Saturation 95 % (95-98) 08/07/17 05:24 PT/INR, D-dimer PT 11.2 Seconds (9.4-12.1) 08/04/17 04:51 Abnormal lab findings: Abnormal lab results WBC 12.4 K/mcL (4.3-11.1) H 08/06/17 04:32 RBC 3.52 M/mcL (3.82-4.97) L 08/06/17 04:32 Hgb 9.9 g/dL (11.5-15.4) L 08/06/17 04:32 Hct 31.1 % (35.3-44.9) L 08/06/17 04:32 RDW 16.0 % (11.5-14.5) H 08/06/17 04:32 Neutrophils # 9.1 K/mcL (1.6-8.9) H 08/06/17 04:32 APTT 21.3 Seconds (26.0-36.0) L 08/04/17 04:51 ABG pO2 77 mmHg (85-104) L 08/07/17 05:24 Chloride 113 mEq/L (98-109) H 08/06/17 04:32 Glucose 133 mg/dL (70-99) H 08/06/17 04:32 POC Glucose 131 (58-89) H 08/07/17 11:34 Magnesium 1.3 mg/dL (1.6-2.6) L 08/04/17 08:02 Total Bilirubin < 0.2 mg/dL (0.2-1.2) L 08/06/17 04:32 Troponin I 0.26 ng/mL (0-0.03) H* 08/04/17 13:33 Albumin 2.5 g/dL (3.5-5.0) L 08/06/17 04:32 Globulin 3.7 g/dL (2.4-3.5) H 08/06/17 04:32 Albumin/Globulin Ratio 0.7 (1.1-2.2) L 08/06/17 04:32 - Microbiology Findings Microbiology Findings: Microbiology, Last 48 Hours 08/04/17 00:51 Blood Culture - Preliminary Peripheral Venipuncture No growth. 08/04/17 00:51 Blood Culture - Preliminary Peripheral Venipuncture No growth. - Clinical Findings Intake & Output: Intake & Output 08/06/17 08/07/17 08/07/17 23:59 07:59 15:59 Intake Total 498 / 498 791 / 791 485 / 485 Output Total 250 / 250 350 / 350 125 / 125 Balance 248 / 248 441 / 441 360 / 360 Weight 70.4 kg - Attending Attestation I examined this patient and my medical decision-making was reviewed with the Resident Physician. I agree with the documented findings, disposition and treatment plan as described except to the extent set forth below. Patient seen and examined. Labs, radiology, chart personally reviewed. Agree with resident's history and physical, assessment, plan with following comments: TRANSACTION PROCESSOR: Patient is more awake. Pulmonary: Acceptable oxygenation and ventilation. Patient is tolerating spontaneous breathing trial and I am hoping to be able to extubate her. I am waiting for the family. Cardiovascular: stable GI: Nutrition per dietary and GI prophylaxis per routine Heme: DVT prophylaxis per routine Renal; urine out put and renal funtion reviewed Endorcine: blood glucose is monitored Lines: all lines checked and no evidence of infections Skin: skin care to prevent pressure ulcers per nursing routine care Overall prognosis is poor.
--- NOTE | 2017-08-07 11:07 | Palliative Progress Note ---
Date of Encounter: 08/07/17 Time of Encounter: 09:30 - Assessment and plan (1) History of CVA with residual deficit Current Visit: Yes Status: Acute Assessment and plan: this is a year ago. Do not believe the patient will have any more meaningful recovery at this point in time (2) Seizure Current Visit: Yes Status: Acute Assessment and plan: Begun over the last several months. This is in all likelihood is due to scar tissue from the CVA. no More seizures since admission. (3) Goals of care, counseling/discussion Current Visit: Yes Status: Acute Assessment and plan: Long discussion with the patient's sons, who are guardian paperwork is to be brought in today. CODE STATUS is now DNR CCA DNI. However they do wish the patient to be weaned normally. There is no discussion of withdrawal of care at this time however they do know they do not wish to have a trach placed. He has reportedly brought in guardianship paperwork and this is available in the intensive care unit per the nursing staff. - Time Spent With Patient Total time spent is greater than 50% in coordination of care (as documented) at patient's floor/unit and/or counseling patient: - Subjective Interval history: She is intubated, on vent, continues to have a very difficult time with CPAP trials. No complaint of at this time. - Constitutional Vitals: Abnormal lab results WBC 12.4 K/mcL (4.3-11.1) H 08/06/17 04:32 RBC 3.52 M/mcL (3.82-4.97) L 08/06/17 04:32 Hgb 9.9 g/dL (11.5-15.4) L 08/06/17 04:32 Hct 31.1 % (35.3-44.9) L 08/06/17 04:32 RDW 16.0 % (11.5-14.5) H 08/06/17 04:32 Neutrophils # 9.1 K/mcL (1.6-8.9) H 08/06/17 04:32 APTT 21.3 Seconds (26.0-36.0) L 08/04/17 04:51 ABG pO2 77 mmHg (85-104) L 08/07/17 05:24 Chloride 113 mEq/L (98-109) H 08/06/17 04:32 Glucose 133 mg/dL (70-99) H 08/06/17 04:32 POC Glucose 116 (58-89) H 08/07/17 05:23 Magnesium 1.3 mg/dL (1.6-2.6) L 08/04/17 08:02 Total Bilirubin < 0.2 mg/dL (0.2-1.2) L 08/06/17 04:32 Troponin I 0.26 ng/mL (0-0.03) H* 08/04/17 13:33 Albumin 2.5 g/dL (3.5-5.0) L 08/06/17 04:32 Globulin 3.7 g/dL (2.4-3.5) H 08/06/17 04:32 Albumin/Globulin Ratio 0.7 (1.1-2.2) L 08/06/17 04:32 General appearance: Present: no acute distress - Head Head exam: Present: atraumatic, normal inspection - Eye Eye exam: Present: normal appearance - ENT ENT exam: Present: mucous membranes moist - Respiratory Respiratory exam: Present: decreased breath sounds (Transmitted breath sounds from ventilator) - Cardiovascular Cardiovascular exam: Present: RRR - GI/Abdominal GI/Abdominal exam: Present: normal bowel sounds, soft. Absent: tenderness ( HEENT to feed) - Extremities Exam Extremities exam: Present: pedal edema - Neurological Exam Neurological exam: Present: alert (Awakens easily), motor sensory deficit (Able to speak, however also intubated at this time but no movement on the right side. ) - Psychiatric Psychiatric exam: Absent: agitated, anxious - Skin Skin exam: Present: dry, warm Palliative Quality Palliative Quality: Screen for Code Status: Yes, Screen for Goals of Care: Yes, Screen for Pain: Yes, If Pain Regimen Started, Initiate Bowel Regimen: NA, Screen for Nausea/Vomitting: Yes Code Status: 08/04/17 08:28 CODE [Resuscitation Status: Active] [RES] Routine Comment: Resuscitation Status: DNR-Comfort Care-Arrest CODE [Resuscitation Status: Active] [RES] Routine Comment: Resuscitation Status: [id number] - Labs CBC & Chem 7: 08/06/17 04:32 08/06/17 13:58 Labs: Laboratory Results - last 24 hr 08/06/17 08/06/17 08/06/17 11:32 13:58 17:09 ABG pH ABG pCO2 ABG pO2 ABG HCO3 ABG Total CO2 ABG O2 Saturation ABG Base Excess Blood Gas Modality Inspired O2 Potassium 3.7 POC Glucose 123 H 113 H 08/07/17 08/07/17 08/07/17 00:24 05:23 05:24 ABG pH 7.40 ABG pCO2 38 ABG pO2 77 L ABG HCO3 24 ABG Total CO2 24.7 ABG O2 Saturation 95 ABG Base Excess -1.1 Blood Gas Modality AC/VC Inspired O2 30 Potassium POC Glucose 138 H 116 H - ABG Interpretation ABG results: ABG ABG pH 7.40 pH Units (7.32-7.45) 08/07/17 05:24 ABG pCO2 38 mmHg (35-45) 08/07/17 05:24 ABG pO2 77 mmHg (85-104) L 08/07/17 05:24 ABG O2 Saturation 95 % (95-98) 08/07/17 05:24 PT/INR, D-dimer PT 11.2 Seconds (9.4-12.1) 08/04/17 04:51 Consult Discharge Plan - Plan Referrals: NONE,PCP [Primary Care Provider] -
[2017-08-07] MEDS: Dexmedetomidine HCl 400 MCG/100 ML MLS IVC SCH (16:15)
[2017-08-07] MEDS: FentaNYL (PF) 1,000 MCG in 0.9 % Sodium Chloride 80 ML IVC SCH (16:15)
[2017-08-07] MEDS ORDERED: Ipratropium/Albuterol Neb 3 ML IH PRN (16:22)
[2017-08-07] MEDS ORDERED: Ipratropium/Albuterol Neb 3 ML ONE (16:23)
[2017-08-07] MEDS ORDERED: Ondansetron 4 MG/2 ML VIAL IVP PRN (16:37)
[2017-08-08] MEDS: Lacri-Lube 3.5 GM TUBE BOTH EYES SCH ×3 (01:00→08:39)
[2017-08-08] MEDS: Insulin LISPRO 300 UNITS/3 ML VIAL SQ SCH ×4 (01:23→18:59)
[2017-08-08] MEDS: *HR* Heparin 5,000 UNIT/ML VIAL SQ SCH ×2 (06:04→18:59)
[2017-08-08] MEDS: Chlorhexidine Rinse 15 ML MOUTHWASH MM SCH (08:52)
[2017-08-08] MEDS: Pantoprazole 40 MG VIAL IVP SCH (08:52)
[2017-08-08] MEDS: levETIRAcetam 500 MG/5 ML UDC PO SCH ×2 (08:52→20:24)
[2017-08-08] MEDS: Miconazole w/zinc oxide&karaya 92 APPL/92 GM TUBE TP SCH ×3 (08:52→20:25)
[2017-08-08] MEDS: Aspirin 81 MG TAB.CHEW PO SCH (08:52)
--- NOTE | 2017-08-08 09:06 | Pulmonology Progress Note ---
<Laine Angeles - Last Filed: 08/08/17 09:06> Date of Encounter: 08/08/17 Time of Encounter: 07:15 Assessment and Plan (1) Seizure Current Visit: Yes Status: Acute -History of seizures secondary to previous CVA -EEG is consistent with focal neuronal dysfunction of the left hemisphere -continue Faith -Neurology consulted and patient is to f/u outpatient (2) Altered mental status Current Visit: Yes Status: Acute Patient able to follow commands today. Patient is non verbal but appears alert and oriented, able to follow commands. Qualifiers: Altered mental status type: unspecified Qualified Code(s): R41.82 - Altered mental status, unspecified (3) History of CVA with residual deficit Current Visit: Yes Status: Acute Patient has history of CVA with right sided paralysis, dysphagia, and is non- verbal. Repeat CT showed no significant change from previous imaging. (4) Acute respiratory failure Current Visit: Yes Status: Acute Patient extubated successfully yesterday and has has oxygen sats in the upper 90s with no support from BiPAP palliative care is assisting with the communication with patient's son's- code status was changed to DNR CCA DNI. She is stable alert and able to follow verbal commands Qualifiers: Respiratory failure complication: unspecified whether with hypoxia or hypercapnia Qualified Code(s): J96.00 - Acute respiratory failure, unspecified whether with hypoxia or hypercapnia (5) Diabetes mellitus Current Visit: Yes Status: Chronic Continue medium dose sliding scale for patient. Qualifiers: Diabetes mellitus type: type 2 Diabetes mellitus complication status: with circulatory complication Diabetes mellitus complication detail: with other circulatory complications Diabetes mellitus long term care administrator insulin use: with long term care administrator use Qualified Code(s): E11.59 - Type 2 diabetes mellitus with other circulatory complications; Z79.4 - superintendent terminal (current) use of insulin (6) DVT prophylaxis Current Visit: Yes Status: Inactive subq heparin. Subjective Principal diagnosis: Seizure Interval history: No episodes overnight. Patient was extubated yesterday and has done very well with no BiPAP support needed. Patient stable enough to be transferred to the floor. Following commands Objective PUL Vital signs: Last Vital Signs Temp 98.2 F 08/08/17 08:03 Pulse 80 08/08/17 08:00 Resp 20 08/08/17 08:00 BP 118/86 08/08/17 08:00 Pulse Ox 98 08/08/17 08:00 General appearance: no acute distress, alert Eyes: nonicteric Neck: supple Effort: normal Auscultation: bilateral: clear Cardiovascular: regular rate and rhythm Gastrointestinal: normoactive bowel sounds, soft, non-distended Integumentary: normal Extremities: no cyanosis, edema Musculoskeletal: no deformities Gait: normal posture normal mental status, other (Patient with known right annabel paralysis due to previous stroke) mood appropriate, affect normal Results - Laboratory Findings CBC and BMP: 08/06/17 04:32 08/06/17 13:58 ABG ABG pH 7.40 pH Units (7.32-7.45) 08/07/17 05:24 ABG pCO2 38 mmHg (35-45) 08/07/17 05:24 ABG pO2 77 mmHg (85-104) L 08/07/17 05:24 ABG O2 Saturation 95 % (95-98) 08/07/17 05:24 PT/INR, D-dimer PT 11.2 Seconds (9.4-12.1) 08/04/17 04:51 Abnormal lab findings: Abnormal lab results WBC 12.4 K/mcL (4.3-11.1) H 08/06/17 04:32 RBC 3.52 M/mcL (3.82-4.97) L 08/06/17 04:32 Hgb 9.9 g/dL (11.5-15.4) L 08/06/17 04:32 Hct 31.1 % (35.3-44.9) L 08/06/17 04:32 RDW 16.0 % (11.5-14.5) H 08/06/17 04:32 Neutrophils # 9.1 K/mcL (1.6-8.9) H 08/06/17 04:32 APTT 21.3 Seconds (26.0-36.0) L 08/04/17 04:51 ABG pO2 77 mmHg (85-104) L 08/07/17 05:24 Chloride 113 mEq/L (98-109) H 08/06/17 04:32 Glucose 133 mg/dL (70-99) H 08/06/17 04:32 Magnesium 1.3 mg/dL (1.6-2.6) L 08/04/17 08:02 Total Bilirubin < 0.2 mg/dL (0.2-1.2) L 08/06/17 04:32 Troponin I 0.26 ng/mL (0-0.03) H* 08/04/17 13:33 Albumin 2.5 g/dL (3.5-5.0) L 08/06/17 04:32 Globulin 3.7 g/dL (2.4-3.5) H 08/06/17 04:32 Albumin/Globulin Ratio 0.7 (1.1-2.2) L 08/06/17 04:32 - Clinical Findings Intake & Output: Intake & Output 08/07/17 08/08/17 08/08/17 23:59 07:59 15:59 Intake Total 716 / 716 296 / 296 150 / 150 Output Total 200 / 200 325 / 325 275 / 275 Balance 516 / 516 -29 / -29 -125 / -125 Weight 68.61 kg Consult Discharge Plan - Plan Referrals: NONE,PCP [Primary Care Provider] - <Aurora Mckeon - Last Filed: 08/08/17 09:54> Date of Encounter: 08/08/17 Objective PUL Vital signs: Last Vital Signs Temp 98.2 F 08/08/17 08:03 Pulse 85 08/08/17 08:00 Resp 20 08/08/17 08:00 BP 118/86 08/08/17 08:00 Pulse Ox 98 08/08/17 08:00 Results - Laboratory Findings CBC and BMP: 08/06/17 04:32 08/06/17 13:58 ABG ABG pH 7.40 pH Units (7.32-7.45) 08/07/17 05:24 ABG pCO2 38 mmHg (35-45) 08/07/17 05:24 ABG pO2 77 mmHg (85-104) L 08/07/17 05:24 ABG O2 Saturation 95 % (95-98) 08/07/17 05:24 PT/INR, D-dimer PT 11.2 Seconds (9.4-12.1) 08/04/17 04:51 Abnormal lab findings: Abnormal lab results WBC 12.4 K/mcL (4.3-11.1) H 08/06/17 04:32 RBC 3.52 M/mcL (3.82-4.97) L 08/06/17 04:32 Hgb 9.9 g/dL (11.5-15.4) L 08/06/17 04:32 Hct 31.1 % (35.3-44.9) L 08/06/17 04:32 RDW 16.0 % (11.5-14.5) H 08/06/17 04:32 Neutrophils # 9.1 K/mcL (1.6-8.9) H 08/06/17 04:32 APTT 21.3 Seconds (26.0-36.0) L 08/04/17 04:51 ABG pO2 77 mmHg (85-104) L 08/07/17 05:24 Chloride 113 mEq/L (98-109) H 08/06/17 04:32 Glucose 133 mg/dL (70-99) H 08/06/17 04:32 Magnesium 1.3 mg/dL (1.6-2.6) L 08/04/17 08:02 Total Bilirubin < 0.2 mg/dL (0.2-1.2) L 08/06/17 04:32 Troponin I 0.26 ng/mL (0-0.03) H* 08/04/17 13:33 Albumin 2.5 g/dL (3.5-5.0) L 08/06/17 04:32 Globulin 3.7 g/dL (2.4-3.5) H 08/06/17 04:32 Albumin/Globulin Ratio 0.7 (1.1-2.2) L 08/06/17 04:32 - Clinical Findings Intake & Output: Intake & Output 08/07/17 08/08/17 08/08/17 23:59 07:59 15:59 Intake Total 716 / 716 296 / 296 373 / 373 Output Total 200 / 200 325 / 325 275 / 275 Balance 516 / 516 -29 / -29 98 / 98 Weight 68.61 kg - Attending Attestation I examined this patient and my medical decision-making was reviewed with the Resident Physician. I agree with the documented findings, disposition and treatment plan as described except to the extent set forth below. Patient seen and examined. Labs, radiology, chart personally reviewed. Agree with resident's history and physical, assessment, plan with following comments: LEVEL VIAL MARKER: Patient follows commands, there is no evidence of seizures on current treatment. Pulmonary: Acceptable oxygenation and ventilation. Continue with aspiration precautions and airway clearance Cardiovascular: stable GI: Nutrition per dietary and GI prophylaxis per routine. Patient is tolerating tube feeds Heme: DVT prophylaxis per routine Renal; urine out put and renal funtion reviewed Endorcine: blood glucose is monitored Lines: all lines checked and no evidence of infections Skin: skin care to prevent pressure ulcers per nursing routine care Discussed with the family and patient is stable to be transferred to the floor.
[2017-08-08] MEDS ORDERED: *HR* LORazepam 2 MG/ML VIAL IVP PRN (09:10)
[2017-08-08] MEDS ORDERED: Ondansetron 4 MG/2 ML VIAL IVP PRN (09:10)
[2017-08-08] MEDS ORDERED: Ipratropium/Albuterol Neb 3 ML IH PRN (09:10)
[2017-08-09] MEDS: Insulin LISPRO 300 UNITS/3 ML VIAL SQ SCH ×4 (04:19→17:59)
[2017-08-09] MEDS: *HR* Heparin 5,000 UNIT/ML VIAL SQ SCH ×2 (06:14→17:59)
--- NOTE | 2017-08-09 07:35 | Internal Med Progress Note ---
Date of Encounter: 08/09/17 Time of Encounter: 07:34 - Assessment and plan (1) Seizure Current Visit: Yes Status: Acute Assessment and plan: Patient is known to have a seizure disorder. 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 Patient was hospitalized in ICU for more than 72 hours. Patient came to floor yesterday. Noted that patient's Keppra was 500 mg twice a day and now it is 1000 mg twice a day. Plan: Will continue same management for now. Noted that pulmonary signed off. Palliative care team on the board. We will follow the recommendation from palliative care. (2) History of CVA with residual deficit Current Visit: Yes Status: Acute Assessment and plan: Patient with previous CVA and has a residual deficit. (3) Essential (primary) hypertension Current Visit: No Status: Chronic Assessment and plan: Blood pressure is well controlled and will continue same medication. (4) DVT prophylaxis Current Visit: Yes Status: Inactive Assessment and plan: Heparin Medical decision making: This patient has a moderate to severe risk of worsening in spite of being on appropriate medications. - Subjective Interval history: Patient seen and examined. Chart reviewed. This is ICU transfer to the floor. Patient is nonverbal and she just communicates via facial expression and signs like thumbs-up/thumbs down Upon asking her how is she doing, she gave me a thumbs up sign - Constitutional Vitals: Temp Pulse Resp BP Pulse Ox 98.7 F 82 17 167/89 93 08/09/17 07:27 08/09/17 07:27 08/09/17 07:27 08/09/17 07:27 08/09/17 07:27 - Head Head exam: Present: atraumatic, normocephalic - Eye Eye exam: Present: PERRL, conjuntiva pink, sclera anicteric Pupils: Present: PERRL - Neck Neck exam general surgery: Present: supple, trachea midline. Absent: lymphadenopathy - Respiratory Respiratory exam: Present: CTAB. Absent: accessory muscle use, rales, rhonchi, wheezes - Cardiovascular Cardiovascular exam: Present: RRR, +S1, +S2. Absent: diastolic murmur, gallop, rubs, systolic murmur - GI/Abdominal GI/Abdominal exam: Present: normal bowel sounds, soft, no peritoneal signs. Absent: distended, tenderness - Extremities Exam Extremities exam: Present: warm, radial pulses palpable and symmetrical. Absent : calf tenderness, cyanotic, pedal edema - Neurological Exam Neurological exam: Present: CN II-XII intact, oriented X3, no focal deficits. Absent: pronater drift, facial droop, speech deficit - Skin Skin exam: Present: dry, intact Internal Medicine: Result - Labs CBC & Chem 7: 08/06/17 04:32 08/06/17 13:58 - ABG Interpretation ABG results: ABG ABG pH 7.40 pH Units (7.32-7.45) 08/07/17 05:24 ABG pCO2 38 mmHg (35-45) 08/07/17 05:24 ABG pO2 77 mmHg (85-104) L 08/07/17 05:24 ABG O2 Saturation 95 % (95-98) 08/07/17 05:24 PT/INR, D-dimer PT 11.2 Seconds (9.4-12.1) 08/04/17 04:51 Consult Discharge Plan - Plan Referrals: NONE,PCP [Primary Care Provider] -
[2017-08-09] MEDS ORDERED: Pantoprazole 40 MG VIAL IVP SCH (09:00)
[2017-08-09] MEDS: Miconazole w/zinc oxide&karaya 92 APPL/92 GM TUBE TP SCH ×3 (09:18→21:53)
[2017-08-09] MEDS: Aspirin 81 MG TAB.CHEW PO SCH (09:18)
[2017-08-09] MEDS: levETIRAcetam 500 MG/5 ML UDC PO SCH ×2 (09:18→21:47)
[2017-08-09] MEDS ORDERED: Acetaminophen/Aspirin/Caffeine TABLET PO PRN (16:01)
[2017-08-10] MEDS: Insulin LISPRO 300 UNITS/3 ML VIAL SQ SCH ×3 (00:03→12:25)
[2017-08-10 04:53] LABS: Basophils # 0.1 K/mcL (0.0-0.2); Basophils % 0.4 %; Eosinophils # 0.9 K/mcL (0.0-0.6); Eosinophils % 5.4 %; Hematocrit 33.7 % (35.3-44.9); Hemoglobin 10.3 g/dL (11.5-15.4); Immature Granulocytes % 0.7 % (0-4); Lymphocytes # 1.4 K/mcL (0.6-4.6); Lymphocytes % 8.4 %; Mean Corpuscular HGB Conc 30.6 g/dL (31.6-35.5); Mean Corpuscular Hemoglobin 27.3 pg (28.0-33.3); Mean Corpuscular Volume 89.4 fL (83.0-100.0); Mean Platelet Volume 11.5 fL (9.4-12.4); Monocytes % 6.2 %; Neutrophils # 12.9 K/mcL (1.6-8.9); Platelet Count 432 K/mcL (140-400); Red Blood Count 3.77 M/mcL (3.82-4.97); Red Cell Distribution Width 16.3 % (11.5-14.5); Segmented Neutrophils % 78.9 %
[2017-08-10 05:11] LABS: Alanine Aminotransferase 28 Units/L (0-55); Albumin 2.7 g/dL (3.5-5.0); Albumin/Globulin Ratio 0.7 (1.1-2.2); Alkaline Phosphatase 109 Units/L (38-126); Aspartate Amino Transferase 26 Units/L (5-34); BUN/Creatinine Ratio 18 (6-26); Bilirubin,Total 0.3 mg/dL (0.2-1.2); Blood Urea Nitrogen 14 mg/dL (7-20); Calcium 9.1 mg/dL (8.6-10.8); Carbon Dioxide 25 mEq/L (19-29); Chloride 107 mEq/L (98-109); Glucose 148 mg/dL (70-99); Osmolality,Calculated 295 (280-300); Potassium 3.9 mEq/L (3.5-4.5); Sodium 141 mEq/L (136-145); Total Protein 6.7 g/dL (6.0-8.3); eGFR For African Americans > 60 (> 60); eGFR For Non-African Americans > 60 (> 60)
[2017-08-10] MEDS: *HR* Heparin 5,000 UNIT/ML VIAL SQ SCH (06:22)
--- NOTE | 2017-08-10 08:59 | Palliative Progress Note ---
Date of Encounter: 08/10/17 Time of Encounter: 09:35 - Assessment and plan (1) History of CVA with residual deficit Current Visit: Yes Status: Acute Assessment and plan: this is a year ago. Do not believe the patient will have any more meaningful recovery at this point in time (2) Seizure Current Visit: Yes Status: Acute Assessment and plan: Begun over the last several months. This is in all likelihood is due to scar tissue from the CVA. no More seizures since admission. From palliative care standpoint this is probably been patient's new baseline. Patient is okay to go from our standpoint. (3) Goals of care, counseling/discussion Current Visit: Yes Status: Acute Assessment and plan: The patient is DNR CCA DNI after discussion with the patient's sons. Patient is probably at her new baseline and can return to retirement at any time for palliative care standpoint. She family have no intent at this time to withdraw care. There does not appear to be any reason to do so either. As the patient is receiving nutrition through tube feeds and as now at baseline he is not hospice eligible, less there is withdrawal of care of food and nutrition. she is not anypermaentvgtaie state while seriously impaired I do not believe that she is in any way shape or form in a vegetative state, and she is not imminently terminal therefore believe she can return to her current status at the retirement. Family can decide at a later time whether or not they wish to continue the tube feeds or not. As the goals of care are well established, status is well established palliative care will now sign off. I believe the patient will be discharged today anyway, we can help at all please feel free to reconsult. - Time Spent With Patient Total time spent is greater than 50% in coordination of care (as documented) at patient's floor/unit and/or counseling patient: - Subjective Interval history: She is extubated now on tube feeds has no complaints of and no problems noted over the weekend. - Constitutional Vitals: Abnormal lab results WBC 16.4 K/mcL (4.3-11.1) H 08/10/17 04:13 RBC 3.77 M/mcL (3.82-4.97) L 08/10/17 04:13 Hgb 10.3 g/dL (11.5-15.4) L 08/10/17 04:13 Hct 33.7 % (35.3-44.9) L 08/10/17 04:13 MCH 27.3 pg (28.0-33.3) L 08/10/17 04:13 MCHC 30.6 g/dL (31.6-35.5) L 08/10/17 04:13 RDW 16.3 % (11.5-14.5) H 08/10/17 04:13 Plt Count 432 K/mcL (140-400) H 08/10/17 04:13 Neutrophils # 12.9 K/mcL (1.6-8.9) H 08/10/17 04:13 Eosinophils # 0.9 K/mcL (0.0-0.6) H 08/10/17 04:13 APTT 21.3 Seconds (26.0-36.0) L 08/04/17 04:51 ABG pO2 77 mmHg (85-104) L 08/07/17 05:24 Glucose 148 mg/dL (70-99) H 08/10/17 04:13 POC Glucose 127 (58-89) H 08/09/17 16:37 Magnesium 1.3 mg/dL (1.6-2.6) L 08/04/17 08:02 Troponin I 0.26 ng/mL (0-0.03) H* 08/04/17 13:33 Albumin 2.7 g/dL (3.5-5.0) L 08/10/17 04:13 Globulin 4.0 g/dL (2.4-3.5) H 08/10/17 04:13 Albumin/Globulin Ratio 0.7 (1.1-2.2) L 08/10/17 04:13 General appearance: Present: no acute distress - Head Head exam: Present: atraumatic, normal inspection - Eye Eye exam: Present: normal appearance - ENT ENT exam: Present: mucous membranes moist - Respiratory Respiratory exam: Present: CTAB - Cardiovascular Cardiovascular exam: Present: RRR - GI/Abdominal GI/Abdominal exam: Present: normal bowel sounds, soft. Absent: tenderness - Extremities Exam Extremities exam: Absent: tenderness - Neurological Exam Neurological exam: Present: alert (Patient not able to communicate secondary to CVA), motor sensory deficit (No movement right side) - Psychiatric Psychiatric exam: Absent: agitated, anxious - Skin Skin exam: Present: dry, warm Palliative Quality Palliative Quality: Screen for Code Status: Yes, Screen for Goals of Care: Yes, Screen for Pain: Yes, If Pain Regimen Started, Initiate Bowel Regimen: NA, Screen for Nausea/Vomitting: Yes Code Status: 08/04/17 08:28 CODE [Resuscitation Status: Active] [RES] Routine Comment: Resuscitation Status: DNR-Comfort Care-Arrest CODE [Resuscitation Status: Active] [RES] Routine Comment: Resuscitation Status: [id number] - Labs CBC & Chem 7: 08/10/17 04:13 08/10/17 04:13 Labs: Laboratory Results - last 24 hr 08/09/17 08/10/17 08/10/17 16:37 04:13 04:13 WBC 16.4 H RBC 3.77 L Hgb 10.3 L Hct 33.7 L MCV 89.4 MCH 27.3 L MCHC 30.6 L RDW 16.3 H Plt Count 432 H MPV 11.5 Immature Gran % 0.7 Seg Neutrophils % 78.9 Lymphocytes % 8.4 Monocytes % 6.2 Eosinophils % 5.4 Basophils % 0.4 Neutrophils # 12.9 H Lymphocytes # 1.4 Monocytes # 1.0 Eosinophils # 0.9 H Basophils # 0.1 Sodium 141 Potassium 3.9 Chloride 107 Carbon Dioxide 25 BUN 14 Creatinine 0.78 Est GFR ( Amer) > 60 Est GFR (Non-Af Amer) > 60 BUN/Creatinine Ratio 18 Glucose 148 H POC Glucose 127 H Calculated Osmolality 295 Calcium 9.1 Total Bilirubin 0.3 AST 26 ALT 28 Alkaline Phosphatase 109 Serum Total Protein 6.7 Albumin 2.7 L Globulin 4.0 H Albumin/Globulin Ratio 0.7 L - ABG Interpretation ABG results: ABG ABG pH 7.40 pH Units (7.32-7.45) 08/07/17 05:24 ABG pCO2 38 mmHg (35-45) 08/07/17 05:24 ABG pO2 77 mmHg (85-104) L 08/07/17 05:24 ABG O2 Saturation 95 % (95-98) 08/07/17 05:24 PT/INR, D-dimer PT 11.2 Seconds (9.4-12.1) 08/04/17 04:51 Consult Discharge Plan - Plan Referrals: NONE,PCP [Primary Care Provider] - ([facility])
--- NOTE | 2017-08-10 09:40 | Discharge Summary ---
<Grey Glasgow - Last Filed: 08/10/17 15:26> Date of Encounter: 08/10/17 Time of Encounter: 09:00 - Discharge Diagnosis (1) Seizure Priority: Primary Status: Acute (2) History of CVA with residual deficit Priority: Secondary Status: Acute (3) Altered mental status Priority: Secondary Status: Acute Qualifiers: Altered mental status type: unspecified Qualified Code(s): R41.82 - Altered mental status, unspecified (4) Acute respiratory failure Priority: Secondary Status: Acute Qualifiers: Respiratory failure complication: unspecified whether with hypoxia or hypercapnia Qualified Code(s): J96.00 - Acute respiratory failure, unspecified whether with hypoxia or hypercapnia (5) Diabetes mellitus Priority: Secondary Status: Chronic Qualifiers: Diabetes mellitus type: type 2 Diabetes mellitus complication status: with circulatory complication Diabetes mellitus complication detail: with other circulatory complications 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 use Qualified Code(s): E11.59 - Type 2 diabetes mellitus with other circulatory complications; Z79.4 - group home (current) use of insulin - Discharge Medications Prescriptions: levETIRAcetam [Keppra Oral Soln] 1,000 mg PO BID #60 Home Medications: Irbesartan [Avapro] 75 mg GTUBE HS 04/30/16 [History] Oxybutynin [Ditropan] 5 mg GTUBE DAILY 04/30/16 [History] Aspirin 81 mg GTUBE HS tab.chew 06/27/16 [Rx] Sennosides [Senna] 8.8 mg GTUBE BID PRN #0 udc 06/27/16 [Rx] amLODIPine [Norvasc] 10 mg GTUBE HS tablet 06/27/16 [Rx] Acetaminophen [Pain Relief Adult] 1,000 mg GTUBE Q6H PRN 08/03/17 [History] Ertapenem [INVanz] 1,000 mg IV Q24H 08/03/17 [History] Ferrous Sulfate Oral Soln 220 mg GTUBE DAILY 08/03/17 [History] GuaiFENesin/Dextromethorphan [Tussin Dm Syrup] 10 ml GTUBE Q6H PRN 08/03/17 [ History] Insulin Glargine,Hum.rec.anlog [Lantus Solostar] 13 unit SQ HS 08/03/17 [History ] Insulin LISPRO [HumaLOG] 2 - 12 units SQ QID 08/03/17 [History] Ipratropium/Albuterol Neb [Duoneb] 3 ml IH Q4H 08/03/17 [History] L. Acidophilus/Pectin, [place] [Acidophilus Probiotic Capsule] 1 each PO BID 10/09 [History] Lansoprazole [Prevacid] 30 mg GTUBE DAILY 08/03/17 [History] Levothyroxine [Synthroid] 112 mcg GTUBE QAM 08/03/17 [History] Menthol/Zinc Oxide [Caladrox Ointment] 1 appl TP BID 08/03/17 [History] Multivitamin with Minerals [Apatate Forte] 15 ml GTUBE DAILY 08/03/17 [History] Ondansetron HCl [Zofran] 4 mg PO Q6H PRN 08/03/17 [History] Potassium Chloride Elixir [Potassium Chloride] 20 meq GTUBE DAILY 08/03/17 [ History] Sertraline [Zoloft] 100 mg GTUBE DAILY 08/03/17 [History] Simethicone [Gaviscon Drops] 80 mg GTUBE TID 08/03/17 [History] Simvastatin [Zocor] 10 mg GTUBE HS 08/03/17 [History] levETIRAcetam [Keppra Oral Soln] 1,000 mg PO BID #60 08/10/17 [Rx] Allergies/Adverse Reactions: 3 Allergy/AdvReac Type Severity Reaction Status Date / Time losartan [Losartan] AdvReac Cough Verified 04/30/16 08:38 Procedures/tests Complete & Pending: CXR: "FINDINGS: There is an endotracheal tube in place with its tip 3 cm above the jose g. Sternotomy wires are present, at least 1 of which appears fractured, new since the prior study. Arterial vascular calcifications project over the aortic knob and soft tissues of the left neck. The heart size and visualized mediastinal contours are stable. The lung volumes are low. A small moderate left pleural effusion is noted with associated basilar airspace disease. A band of density in the right mid to lower lung is suggestive of atelectasis or scarring. Overall, there are increased interstitial markings which could be due to low lung volumes. XR/XR chest 1V IMPRESSION: Left pleural effusion with left basilar airspace disease, atelectasis or pneumonia. Low lung volume study showing prominent interstitial markings. Correlation for pulmonary edema is recommended. Endotracheal tube in place as above." EEG: "Impression: This is an abnormal EEG due to presence of persistent hemispheric slowing on the left side. No active seizure is noted. No epileptiform discharges noted. Clinical Correlation: This EEG is consistent with focal neuronal dysfunction at the left hemisphere. This pattern can be seen in patients with focal cerebral structure abnormalities , or less likely, as a post-ictal phenomenon of partial seizure disorder. Clinical correlation advised. Correlation with imaging studies may be helpful. " Date of admission: 08/03/17 16:47 Primary care physician: PCP NONE Consults: 08/03/17 17:22 Consult to Neurology [CONS] Routine Consulting Provider: [facility] Reason for Consult: Seizure AMS Call Completed: Yes 08/04/17 10:06 Consult to Interpret Exam [CONS] Routine Consulting Provider: Cayden Alba Consult to Interpret Exam: Interpret EEG 08/05/17 10:41 Consult to Palliative Care [CONS] Routine Comment: Consulting Provider: [facility] Reason for Consult: Failed CPAP three times. Poor prognosis. Time Notified: 10:20 Call Completed: Yes Discharging clinician: Grey Glasgow Anticipated date of discharge: 08/10/17 - Patient Status Disposition: Transfer SNF Condition: Fair Functional capacity at discharge: bed bound Overall status at discharge: patient is progressing back to baseline - Discharge Instructions Instructions: Epilepsy (DC) Follow Up With: NONE,PCP [Primary Care Provider] - ([facility]) Additional Instructions: Please follow up with your primary care provider within 1 week. Please resume all your home medications as prescribed. Please take you new higher dose of Keppra as precribed. Please return to the hospital if you experience any new or worsening symptoms. - Diet and Activity Activity: resume usual activities as tolerated Diet: advance to your usual diet Interval History: Patient reports feeling ok through hand signals. She nods or shakes her head appropriately to questions. Denies current pain, trouble breathing, changes in bowels. Reports feeling at baseline. Hospital course: Ms. Savage is a 66 year old female c Pmhx of CVA (post op 04/2016, and 2010) c R sided annabel paralysis, non verbal s/p CVA, hyperlipidemia, hypertension, coronary artery disease, and hypothyroidism who reports to the hospital for breakthrough seizure on keppra. Seizures secondary to scarring secondary to CVAs. Patient's Keppra increased to 1000 BID. Patient was aktered ad in acute respiratory failure upon presentation and was admitted to the ICU. She was successfully extubated 2 days ago and her mental status returned to normal. She reports feeling back to baseline and was discharged back to her [facility]. - Time Spent with Patient Total time spent providing and/or coordinating discharge services: 40 minutes. - Constitutional Vitals: Temp Pulse Resp BP Pulse Ox 99.6 F 88 19 106/72 96 08/10/17 08:12 08/10/17 08:12 08/10/17 08:12 08/10/17 08:12 08/10/17 08:12 - Head Head exam: Present: atraumatic, normocephalic - Eye Eye exam: Present: PERRL, conjuntiva pink, sclera anicteric Pupils: Present: PERRL - Neck Neck exam general surgery: Present: supple, trachea midline - Respiratory Respiratory exam: Present: CTAB. Absent: accessory muscle use, rales, rhonchi, wheezes - Cardiovascular Cardiovascular exam: Present: RRR, +S1, +S2. Absent: diastolic murmur, gallop, rubs, systolic murmur - GI/Abdominal GI/Abdominal exam: Present: normal bowel sounds, soft, no peritoneal signs. Absent: distended, tenderness - Extremities Exam Extremities exam: Present: warm. Absent: calf tenderness, cyanotic, pedal edema - Neurological Exam Neurological exam: Present: alert, speech deficit Additional comments: R sided hemiparesis. - Skin Skin exam: Present: dry, intact <Gabriela,Pillo P - Last Filed: 08/10/17 18:55> Date of Encounter: 08/10/17 - Discharge Diagnosis (1) Seizure Status: Acute (2) History of CVA with residual deficit Status: Acute (3) Essential (primary) hypertension Status: Chronic (4) DVT prophylaxis Status: Inactive Date of admission: 08/03/17 16:47 Primary care physician: PCP NONE Consults: 08/03/17 17:22 Consult to Neurology [CONS] Routine Consulting Provider: [facility] Reason for Consult: Seizure AMS Call Completed: Yes 08/04/17 10:06 Consult to Interpret Exam [CONS] Routine Consulting Provider: Cayden Alba Consult to Interpret Exam: Interpret EEG 08/05/17 10:41 Consult to Palliative Care [CONS] Routine Comment: Consulting Provider: Pall[facility] Reason for Consult: Failed CPAP three times. Poor prognosis. Time Notified: 10:20 Call Completed: Yes Hospital course: Ms. Savage is a 66 year old female - Time Spent with Patient Total time spent providing and/or coordinating discharge services: - Constitutional Vitals: Temp Pulse Resp BP Pulse Ox 99.7 F H 95 22 117/76 95 08/10/17 11:43 08/10/17 11:43 08/10/17 11:43 08/10/17 11:43 08/10/17 11:43 - Attending Attestation I examined this patient and my medical decision-making was reviewed with the Resident Physician. I agree with the documented findings, disposition and treatment plan as described except to the extent set forth below.
[2017-08-10] MEDS: Miconazole w/zinc oxide&karaya 92 APPL/92 GM TUBE TP SCH (10:47)
[2017-08-10] MEDS: levETIRAcetam 500 MG/5 ML UDC PO SCH (10:47)
[2017-08-10] MEDS: Aspirin 81 MG TAB.CHEW PO SCH (10:47)
--- NOTE | 2017-08-10 11:10 | Physician Discharge Referral ---
<Grey Glasgow - Last Filed: 08/10/17 14:10> [facility] Referral Info Provider in Charge after Transfer: PCP Institutional Level of Care: Intermediate - Diagnosis (1) Seizure Priority: Primary Status: Acute (2) History of CVA with residual deficit Priority: Secondary Status: Acute (3) Altered mental status Priority: Secondary Status: Acute (4) Acute respiratory failure Priority: Secondary Status: Acute (5) Diabetes mellitus Priority: Secondary Status: Chronic - Transfer Medications Prescriptions: levETIRAcetam [Keppra Oral Soln] 1,000 mg PO BID #60 Home Medications: Irbesartan [Avapro] 75 mg GTUBE HS 04/30/16 [History] Oxybutynin [Ditropan] 5 mg GTUBE DAILY 04/30/16 [History] Aspirin 81 mg GTUBE HS tab.chew 06/27/16 [Rx] Sennosides [Senna] 8.8 mg GTUBE BID PRN #0 udc 06/27/16 [Rx] amLODIPine [Norvasc] 10 mg GTUBE HS tablet 06/27/16 [Rx] Acetaminophen [Pain Relief Adult] 1,000 mg GTUBE Q6H PRN 08/03/17 [History] Ertapenem [INVanz] 1,000 mg IV Q24H 08/03/17 [History] Ferrous Sulfate Oral Soln 220 mg GTUBE DAILY 08/03/17 [History] GuaiFENesin/Dextromethorphan [Tussin Dm Syrup] 10 ml GTUBE Q6H PRN 08/03/17 [ History] Insulin Glargine,Hum.rec.anlog [Lantus Solostar] 13 unit SQ HS 08/03/17 [History ] Insulin LISPRO [HumaLOG] 2 - 12 units SQ QID 08/03/17 [History] Ipratropium/Albuterol Neb [Duoneb] 3 ml IH Q4H 08/03/17 [History] L. Acidophilus/Pectin, [place] [Acidophilus Probiotic Capsule] 1 each PO BID 10/09 [History] Lansoprazole [Prevacid] 30 mg GTUBE DAILY 08/03/17 [History] Levothyroxine [Synthroid] 112 mcg GTUBE QAM 08/03/17 [History] Menthol/Zinc Oxide [Caladrox Ointment] 1 appl TP BID 08/03/17 [History] Multivitamin with Minerals [Apatate Forte] 15 ml GTUBE DAILY 08/03/17 [History] Ondansetron HCl [Zofran] 4 mg PO Q6H PRN 08/03/17 [History] Potassium Chloride Elixir [Potassium Chloride] 20 meq GTUBE DAILY 08/03/17 [ History] Sertraline [Zoloft] 100 mg GTUBE DAILY 08/03/17 [History] Simethicone [Gaviscon Drops] 80 mg GTUBE TID 08/03/17 [History] Simvastatin [Zocor] 10 mg GTUBE HS 08/03/17 [History] levETIRAcetam [Keppra Oral Soln] 1,000 mg PO BID #60 08/10/17 [Rx] Allergies/Adverse Reactions: 3 Allergy/AdvReac Type Severity Reaction Status Date / Time losartan [Losartan] AdvReac Cough Verified 04/30/16 08:38 - Respiratory Orders Oxygen / L per min (3-4 L) Smoking Cessation: Smoking cessation has been advised. For more information, call the [facility] Line at 6-717-CBJI-NOW. - Ancillary Orders May use pressure relief devices daily prn - Advance Directives Code Status: DNR-Arrest/Don't Intubate - Rehabiliation Orders Rehab Orders: ROM Exercises - Treatments Skin tear care topically daily PRN per policy - Diet Orders Tube Feedings (type/amount/rate): Osmolite 1.2 @50mls/hr CERTIFICATION: I certify that the transfer of the above named patient to an Extended Care Facility is necessary for the continuing treatment of the diagnosis listed. The above information is true and accurate reflection of patient's current condition. Confidential - Redisclosure prohibited without a patient's written consent. <Pillo Ochoa P - Last Filed: 08/10/17 18:55> - Diagnosis (1) Seizure Status: Acute (2) History of CVA with residual deficit Status: Acute (3) Essential (primary) hypertension Status: Chronic (4) DVT prophylaxis Status: Inactive - Respiratory Orders Smoking Cessation: Smoking cessation has been advised. For more information, call the [facility] at 7-974-QTKC-NOW. CERTIFICATION: I certify that the transfer of the above named patient to an Extended Care Facility is necessary for the continuing treatment of the diagnosis listed. The above information is true and accurate reflection of patient's current condition. Confidential - Redisclosure prohibited without a patient's written consent.
[2017-08-10 11:46] VITALS: BP 117/76
== END 2017-08-10 16:46 | DRG 208 ==
LOC: ICNU 16:47 → 2ANU 08-08 12:54
PROVIDERS: ADMIT Internal Medicine Pulmonary Disease; ATTEND Internal Medicine